=== PATIENT | male | born 1965 | race American Indian/Alaskan Native ===

== ENCOUNTER 2016-07-18 07:50 | Inpatient (IN) | payer MEDICAID, OTHER ==
[2016-07-18 08:51] LABS: BASO % 0.8 % (0.0-2.0); EOS % 0.6 % (0.0-4.0); HEMATOCRIT 39.5 % (35.0-51.0); LYMPH # 1.3 K/uL (1.0-4.3); LYMPH % 20.9 % (20.0-40.0); MEAN CELL VOLUME 88.5 fL (80.0-94.0); MEAN CORPUSCULAR HEMOGLOBIN 29.1 pg (27.0-31.0); MEAN CORPUSCULAR HGB CONC 32.9 g/dL (33.0-37.0); MEAN PLATELET VOLUME 8.2 fL (7.2-11.7); MONO # 0.6 K/uL (0.0-0.8); MONO % 9.4 % (0.0-10.0); NRBC % 0.1 % (0.0-2.0); WHITE BLOOD COUNT 6.1 K/uL (4.8-10.8)
[2016-07-18 08:59] LABS: CHLORIDE 100 mmol/L (98-107)
[2016-07-18 09:00] LABS: POTASSIUM 3.6 mmol/L (3.6-5.2); SODIUM 140 mmol/L (132-148)
[2016-07-18 09:03] LABS: GFR AFRICAN-AMERICAN > 60
[2016-07-18 09:04] LABS: ALB/GLOB RATIO 1.3 (1.0-2.1); ALCOHOL SERUM < 10 mg/dl (0-10); ALKALINE PHOSPHATASE 58 U/L (38-126); ALT/SGPT 26 U/L (21-72); AST/SGOT 35 U/L (17-59); BILIRUBIN,TOTAL 0.3 mg/dL (0.2-1.3); BLOOD UREA NITROGEN 20 mg/dL (9-20); CALCIUM 8.6 mg/dl (8.6-10.4); CARBON DIOXIDE 26 mmol/L (22-30); GLUCOSE,RANDOM 74 mg/dL (75-110); TOTAL PROTEIN 6.9 g/dL (6.3-8.3)
[2016-07-18 09:05] LABS: RBC URINE 5 /hpf (0-3); URINE BILIRUBIN NEGATIVE (NEGATIVE); URINE COLOR Yellow (YELLOW); URINE GLUCOSE (UA) NORMAL (Normal); URINE KETONE NEGATIVE (NEGATIVE); URINE LEUKOCYTE ESTERASE NEG Leu/uL (Negative); URINE PROTEIN NEGATIVE (NEGATIVE); URINE UROBILINOGEN NORMAL mg/dL (0.2-1.0); WBC URINE 2 /hpf (0-5)
[2016-07-18 09:06] LABS: URINE BLOOD TRACE (NEGATIVE)
[2016-07-18] MEDS ORDERED: Naproxen 550 mg Tab PO STA (10:07)
--- NOTE | 2016-07-18 10:46 | C.PDOC ---
History Of Present Illness 51-year-old male presents to the emergency department with complaints of increasing depression and auditory hallucinations for the past several days. He states the voices tell him to harm himself. Patient notes that two days ago, the voices told him to "jump off the roof " and he did, sustaining an injury to his lower back. He c/o low back pain currently. Patient denies head/neck injury, LOC, abdominal pain, chest pain, SOB, extremity weakness, sensory changes. Time Seen by Provider: 07/18/16 08:05 Chief Complaint (Nursing): Psychiatric Evaluation History Per: Patient History/Exam Limitations: no limitations Onset/Duration Of Symptoms: Days Current Symptoms Are (Timing): Still Present Modifying Factor(s): Alcohol Severity: Moderate Past Medical History Reviewed: Historical Data, Nursing Documentation, Vital Signs Vital Signs: Last Vital Signs Temp 98.1 F 07/28/16 08:12 Pulse 75 07/28/16 09:00 Resp 18 07/28/16 08:12 BP 123/82 07/28/16 08:12 Pulse Ox 99 07/18/16 12:05 - Medical History PMH: Depression - [facility] Procedures GROUP PSYCHOTHERAPY (07/18/16) INDIVID PSYCHOTHERAP NEC (10/12/14) INDIVIDUAL PSYCHOTHERAPY, SUPPORTIVE (07/18/16) OTHER GROUP THERAPY (10/12/14) Family History: States: No Known Family Hx - Social History Hx Alcohol Use: Yes (2 shots q2 days,vodka) Hx Substance Use: Yes (marijuana also pos for cocaine) Review Of Systems Except As Marked, All Systems Reviewed And Found Negative. Constitutional: Negative for: Fever Cardiovascular: Negative for: Chest Pain Respiratory: Negative for: Cough, Shortness of Breath Gastrointestinal: Negative for: Nausea, Vomiting, Abdominal Pain Musculoskeletal: Positive for: Back Pain Skin: Negative for: Rash Neurological: Negative for: Weakness, Numbness Psych: Positive for: Depression, Suicidal ideation Physical Exam - Physical Exam Appears: Well, Non-toxic, No Acute Distress Skin: Warm, Dry, No Rash Head: Atraumatic, Normacephalic Eye(s): bilateral: Normal Inspection, PERRL, EOMI Oral Mucosa: Moist Neck: Normal, Normal ROM, No Midline Cervical Tenderness, No Paracervical Tenderness, No Step Off Deformity, Supple Cardiovascular: Rhythm Regular Respiratory: Normal Breath Sounds, No Rales, No Rhonchi Gastrointestinal/Abdominal: Normal Exam, Bowel Sounds, Soft, No Tenderness Back: Normal Inspection, No CVA Tenderness, No Vertebral Tenderness, No Paraspinal Tenderness Extremity: Normal ROM, No Deformity Extremity: Bilateral: Atraumatic, Normal Color And Temperature, Normal ROM Neurological/Psych: Oriented x3 ED Course And Treatment - Laboratory Results Result Diagrams: 07/18/16 08:44 07/18/16 08:44 O2 Sat by Pulse Oximetry: 100 (RA) Pulse Ox Interpretation: Normal - Other Rad LS SPINE XRAY X-Ray: Interpreted by Me, Viewed By Me (NO LISTHESIS, NO FRACTURE, OSTEOPHYTE L4 ) Progress Note: Plan: Blood work, UA, UDS, Xray LS spine ordered and reviewed. Patient given PO Naprosyn for pain. Prior Visits: Notes and records from previous visits were reviewed. Patient seen in [facility] yesterday. Chart was reviewed; There was no mention of back pain or suicide attempt/jumping off the roof. 10:45am:Patient medically cleared. Pending crisis. 11:33am- Patient accepted by Dr. Tripathi for psyciatric admission - depression, alcohol dependence Disposition - Disposition Disposition: HOSPITALIZED Disposition Time: 11:33 Condition: STABLE - Clinical Impression Clinical Impression: Depression, Alcohol dependence - Scribe Statement The provider has reviewed the documentation as recorded by the Tovaibharvinder Nelson All medical record entries made by the Scribe were at my direction and personally dictated by me. I have reviewed the chart and agree that the record accurately reflects my personal performance of the history, physical exam, medical decision making, and the department course for this patient. I have also personally directed, reviewed, and agree with the discharge instructions and disposition. Decision To Admit - Pt Status Changed To: Hospital Disposition Of: Inpatient - Admit Certification Admit to Inpatient:: After my assessment, the patient will require hospitalization for at least two midnights. This is because of the severity of symptoms shown, intensity of services needed, and/or the medical risk in this patient being treated as an outpatient. - InPatient: Physician Admission Certification: I certify that this patient requires 2 or more midnights of care for the following reason:: see notes - . Bed Request Type: Psychiatry Admitting Physician: Zac Tripathi Patient Diagnosis: Depression, Alcohol dependence
[2016-07-18] MEDS ORDERED: Naproxen 550 mg Tab PO ONE (10:48)
--- NOTE | 2016-07-18 13:06 | PCM.PSYCH ---
Initial Psychiatric Evaluation - Initial Psychiatric Evaluation Type of Admission: Voluntary Legal Status: Capacity Chief Complaint (in patient's own words): attempted suicide History of Present Illness and Precipitating Events: Pt. 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 Pt. states that on Thursday he jumped off of a two-story building with the intention of ending his life. Pt. severely injured his back and is now suffering from pain that is an 8/10 on the analog pain scale. Pt. attributes his attempted suicide to the distress at the deaths of his mother and twin sister 2 months ago. Pt. admits to hearing a voice that told him to jump. Pt. states that auditory hallucinations began when he came back from [place] in 1996. Pt. describes the auditory hallucinations as ever changing, male voices. Pt. states that the voices denigrate him, instruct him to hurt others, and to hurt himself. Pt. had two previous suicide attempts in the last two years. 1) In 2014 Pt. took thirty pills, but does not remember what they were. Pt. states that at the time he had lost his job, he was suffering from financial trouble, and he was in the midst of a contentious divorce. Pt. was hospitalized at [facility] for a week. Pt. does not remember inpatient pharmaceutical treatment. Pt. was noncompliant w/ meds and outpatient tx. Pt. does not like taking medication. 2) Pt. states that he attempted suicide using a firearm, but the gun jammed. Pt. states that he was admitted to [facility] for 2 weeks, does not remember inpatient pharmaceutical treatment. On discharge Pt. was noncompliant w / medications and outpatient follow-up. Pt. again states that he does not like taking medication. Pt. admits that since the deaths of his mother and twin sister his drinking has increased from a pint of vodka once a week when he goes to clubs to 10-15 shots a day. Pt. also admits to using marijuana and cocaine - Pt. smoked 1.5 grams of cocaine a day. Pt. admits to insomnia, nightmares, panic attacks, anxiety, headaches, anhedonia , feelings of worthlessness, poor appetite, and intermittent manic episodes followed by depressive mood. Pt. admits that he sometimes feels as if someone is following him. Past Psychiatric History - Past Psychiatric History Previous Treatment History: Inpatient Pertinent Medical Hx (Current Medical&Sleep Prob, Allergies): Allergies Allergy/AdvReac Type Severity Reaction Status Date / Time No Known Allergies Allergy Verified 07/17/16 23:05 No Known Home Med 07/18/16 Review of Systems - Review of Systems All systems: reviewed and no additional remarkable complaints except - Psychiatric Psychiatric: Abnormal Sleep Pattern, Anhedonia, Anxiety, Auditory Hallucinations , Change in Appetite, Depression, Hallucinations, Hopelessness, Irritability, Panic Attacks, Paranoia, Suicidal Ideation Mental Status Examination - Personal Presentation Personal Presentation: Looks stated age - Affect Affect: Constricted, Depressed - Motor Activity Motor Activity: Calm - Reliability in Providing Information Reliability in Providing Information: Good - Speech Speech: Organized - Mood Mood: Depressed - Formal Thought Process Formal Thought Process: No Impairment - Cognitive Functions Orientation: Person, Place, Situation, Time Sensorium: Alert Attention/Concentration: Attentive Abstract Thinking: [place] Estimate of Intelligence: Below average Judgement: Imparied, as evidence by: Poor judgement, Imparied, as evidence by: Lack of insight into illness - Risk Risk: Diminished functioning - Strength & Assets Inventory Strength & Assets Inventory: Cooperative DSM 5 DX - DSM 5 DSM 5 Diagnosis: Bipolar disorder disorder depressed severe with psychotic features PTSD Chronic Alcohol use disorder severe Alcohol withdrawal Cocaine use disorder Severe - Recommended/Plan of Treatment Treatment Recommendations and Plan of Treatment: Bipolar disorder disorder depressed severe with psychotic features CBT Psychoeducation Supportive therapy, individual therapy Paxil 10 mg PO daily Trazodone 50 mg PO Q HS Gabapentin 100 mg by mouth 3 times a day Depakote 250 mg pO BID Risperdal 1 mg PO BID PTSD Chronic CBT & Psychoeducation Supportive therapy, individual therapy Alcohol use disorder severe CBT & Psychoeducation Supportive therapy, individual therapy Use [place] for abstinence Alcohol withdrawal CBT & Psychoeducation Librium 25 mg po Q6hr prn Cocaine use disorder Severe CBT & Psychoeducation Use PR for abstinence Back Pain Tramadol Monitor s/s - Smoking Cessation Smoking Cessation Initiated: No
--- NOTE | 2016-07-18 13:50 | RAD ---
PROCEDURE: Radiographs of the Lumbar Spine. HISTORY: low back pain COMPARISON: No prior. FINDINGS: BONES: There is normal alignment of the lumbar vertebral bodies. Lumbar lordosis is maintained. Vertebral bodies are normal in height. Bone mineralization is normal. There is no acute fracture, spondylolysis or spondylolisthesis. DISC SPACES: There is a large anterosuperior osteophyte at L4. There is mild degenerative disc disease at L4-5 and L5-S1, worse at L5-S1. The remaining disc heights are maintained. OTHER FINDINGS: None. IMPRESSION: No acute fracture, spondylolysis or spondylolisthesis. Mild degenerative disc disease at L4-5 and L5-S1, worse at L5-S1.
[2016-07-18] MEDS: Divalproex 250 mg DR Tab PO SCH (17:24)
[2016-07-19] MEDS: Divalproex 250 mg DR Tab PO SCH ×2 (09:37→17:34)
--- NOTE | 2016-07-19 15:59 | PCM.PYCHPN ---
Psychiatric Progress Note - Psychiatric Progress Note Patient seen today, length of contact: 15 minute Patient Chief Complaint: I still hear voices which are mostly at night. Problems Identified/Issues Discussed: Patient seen. Chart reviewed. Case discussed with staff. Issues related to illness and treatment were discussed with the patient. Patient reported feeling better but still hear voices which are mostly at night. Reported that during the day he keeps himself busy and he is not hearing any voices. Reported compliant with treatment with no adverse affects. Tolerating treatment very well. Reported very mild withdrawal symptoms. At the time of evaluation, patient was awake alert oriented 3, had no delusions, no auditory or visual hallucinations, no suicidal ideations or homicidal ideations. Medical Problems: Back pain Diagnostic Results: Reviewed DSM 5 Symptoms Update: Improving with treatment Medication Change: No Medical Record Reviewed: Yes Mental Status Examination - Cognitive Function Orientation: Person, Place, Situation, Time Memory: Intact Attention: WNL Concentration: WNL Association: WNL Fund of Knowledge: WN Decription of patient's judgement and insights: Fair - Mood Mood: Depressed (Less than before) - Affect Affect: Depressed - Speech Speech: Appropriate - Formal Thought Process Formal Thought Process: No Impairment Psychotic Thoughts and Behaviors: None - Suicidal Ideation Suicidal Ideation: No - Homicidal Ideation Homicidal Ideation: No Goal/Treatment Plan - Goal/Treatment Plan Need for Continued Stay: Remain at risks for inpatient hospitalization, Discharge may exacerbated symptoms, Severe functional impairment Progress Toward Problem(s) and Goals/Treatment Plan: Patient education Supportive therapy Continue treatment as before Estimated Date of D/C: 07/28/16 - Smoking Cessation Smoking Cessation Initiated: No
[2016-07-19] MEDS: Multiple Vitamins Tab PO SCH (17:34)
[2016-07-20] MEDS: Multiple Vitamins Tab PO SCH (09:22)
[2016-07-20] MEDS: Divalproex 250 mg DR Tab PO SCH ×2 (09:22→17:37)
--- NOTE | 2016-07-20 13:30 | PCM.PYCHPN ---
Psychiatric Progress Note - Psychiatric Progress Note Patient seen today, length of contact: 15 minute Patient Chief Complaint: I still hear voices which are mostly at night. Problems Identified/Issues Discussed: Patient seen. Chart reviewed. Case discussed with staff. Issues related to illness and treatment were discussed with the patient. Patient reported feeling better but still hear voices which are mostly at night. Reported that during the day he keeps himself busy and he is not hearing any voices. We will increase the dose of risperidone from 1 mg twice a day to 2 mg twice a day. Patient understood and agreed. Reported compliant with treatment with no adverse affects. Tolerating treatment very well. Reported very mild withdrawal symptoms. At the time of evaluation, patient was awake alert oriented 3, had no delusions, no auditory or visual hallucinations, no suicidal ideations or homicidal ideations. Medical Problems: Back pain Diagnostic Results: Reviewed DSM 5 Symptoms Update: Improving with treatment Medication Change: Yes (Dose of Risperdal increased to 2 mg twice a day) Medical Record Reviewed: Yes Mental Status Examination - Cognitive Function Orientation: Person, Place, Situation, Time Memory: Intact Attention: WNL Concentration: WNL Association: [facility] Fund of Knowledge: [facility] Decription of patient's judgement and insights: Fair - Mood Mood: Depressed (Less than before) - Affect Affect: Depressed - Speech Speech: Appropriate - Formal Thought Process Formal Thought Process: No Impairment (At the time of evaluation) Psychotic Thoughts and Behaviors: None - Suicidal Ideation Suicidal Ideation: No - Homicidal Ideation Homicidal Ideation: No Goal/Treatment Plan - Goal/Treatment Plan Need for Continued Stay: Remain at risks for inpatient hospitalization, Discharge may exacerbated symptoms, Severe functional impairment Progress Toward Problem(s) and Goals/Treatment Plan: Patient education Supportive therapy Continue treatment as before with increasing dose of risperidone to 2 mg twice a day Estimated Date of D/C: 07/28/16 - Smoking Cessation Smoking Cessation Initiated: No
[2016-07-21] MEDS ORDERED: Influenza Virus Vaccine 45 mcg/0.5 ml Syr IM ONE (10:00)
[2016-07-21] MEDS ORDERED: Pneumococcal 23-Valent Vaccine IM ONE (10:00)
[2016-07-21] MEDS: Multiple Vitamins Tab PO SCH (10:03)
[2016-07-21] MEDS: Divalproex 250 mg DR Tab PO SCH ×2 (10:03→17:38)
--- NOTE | 2016-07-21 13:26 | PCM.PYCHPN ---
Psychiatric Progress Note - Psychiatric Progress Note Patient seen today, length of contact: 15 minute Patient Chief Complaint: attempted suicide Problems Identified/Issues Discussed: Pt. admits to depressed mood and at times feelings of hopelessness and helplessness. He reports poor sleep - Pt.reports that he sleeps for about an hour a night. Pt. admits to suffering from vivid flashbacks and nightmares. Pt. admits that he is still hearing voices that tell him he couldve ended it already. Pt. expresses positive affect, and denies suicidal ideation and desire to self-harm. Supportive therapy was given Medication Change: Yes (Dose of Risperdal increased to 2 mg twice a day) Medical Record Reviewed: Yes Mental Status Examination - Cognitive Function Orientation: Person, Place, Situation, Time Memory: Intact Attention: WNL Concentration: Poor Association: WNL Fund of Knowledge: Poor - Mood Mood: Depressed (Less than before), Anxious - Affect Affect: Constricted, Depressed - Speech Speech: Appropriate, Soft - Formal Thought Process Formal Thought Process: No Impairment (At the time of evaluation) - Suicidal Ideation Suicidal Ideation: No - Homicidal Ideation Homicidal Ideation: No Goal/Treatment Plan - Goal/Treatment Plan Need for Continued Stay: Remain at risks for inpatient hospitalization, Discharge may exacerbated symptoms, Severe functional impairment Progress Toward Problem(s) and Goals/Treatment Plan: Bipolar disorder disorder depressed severe with psychotic features CBT Psychoeducation Supportive therapy, individual therapy Paxil 10 mg PO daily Trazodone 50 mg PO Q HS Gabapentin 100 mg by mouth 3 times a day Depakote 250 mg pO BID Risperdal 1 mg PO BID PTSD Chronic CBT & Psychoeducation Supportive therapy, individual therapy Alcohol use disorder severe CBT & Psychoeducation Supportive therapy, individual therapy Use [place] for abstinence Alcohol withdrawal CBT & Psychoeducation Librium 25 mg po Q6hr prn Cocaine use disorder Severe CBT & Psychoeducation Use [place] for abstinence Back Pain Tramadol Monitor s/s Estimated Date of D/C: 07/28/16 - Smoking Cessation Smoking Cessation Initiated: No
[2016-07-22] MEDS: Divalproex 250 mg DR Tab PO SCH ×2 (10:21→17:20)
[2016-07-22] MEDS: Multiple Vitamins Tab PO SCH (10:21)
--- NOTE | 2016-07-22 18:01 | PCM.PYCHPN ---
Psychiatric Progress Note - Psychiatric Progress Note Patient seen today, length of contact: 15 minute Patient Chief Complaint: attempted suicide Problems Identified/Issues Discussed: Pt. admits to depressed mood and at times feelings of hopelessness and helplessness. He reports poor sleep - Pt.reports that he sleeps for about an hour a night. Pt. admits to suffering from vivid flashbacks and nightmares. Pt. admits that he is still hearing voices that tell him he couldve ended it already. Pt. expresses positive affect, and denies suicidal ideation and desire to self-harm. Supportive therapy was given Medication Change: Yes (Dose of Risperdal increased to 2 mg twice a day) Medical Record Reviewed: Yes Mental Status Examination - Cognitive Function Orientation: Person, Place, Situation, Time Memory: Intact Attention: WNL Concentration: Poor Association: WNL Fund of Knowledge: Poor - Mood Mood: Depressed (Less than before), Anxious - Affect Affect: Constricted, Depressed - Speech Speech: Appropriate, Soft - Formal Thought Process Formal Thought Process: No Impairment (At the time of evaluation) - Suicidal Ideation Suicidal Ideation: No - Homicidal Ideation Homicidal Ideation: No Goal/Treatment Plan - Goal/Treatment Plan Need for Continued Stay: Remain at risks for inpatient hospitalization, Discharge may exacerbated symptoms, Severe functional impairment Progress Toward Problem(s) and Goals/Treatment Plan: Bipolar disorder disorder depressed severe with psychotic features CBT Psychoeducation Supportive therapy, individual therapy Paxil 10 mg PO daily Trazodone 50 mg PO Q HS Gabapentin 100 mg by mouth 3 times a day Depakote 250 mg pO BID Risperdal 2 mg PO BID PTSD Chronic CBT & Psychoeducation Supportive therapy, individual therapy Alcohol use disorder severe CBT & Psychoeducation Supportive therapy, individual therapy Use [place] for abstinence Alcohol withdrawal CBT & Psychoeducation Librium 25 mg po Q6hr prn Cocaine use disorder Severe CBT & Psychoeducation Use [place] for abstinence Back Pain Tramadol Monitor s/s Estimated Date of D/C: 07/28/16 - Smoking Cessation Smoking Cessation Initiated: No
[2016-07-23] MEDS: Divalproex 250 mg DR Tab PO SCH ×2 (10:18→17:41)
[2016-07-23] MEDS: Multiple Vitamins Tab PO SCH (10:18)
--- NOTE | 2016-07-23 10:29 | PCM.PYCHPN ---
Psychiatric Progress Note - Psychiatric Progress Note Patient seen today, length of contact: 15 minute Patient Chief Complaint: attempted suicide Problems Identified/Issues Discussed: Pt. reports an increase in hours of sleep to 2.5 hours. Pt. still reports auditory hallucinations, but denies nightmares for the first time since admission. Pt. reports suffering nosebleeds and headaches. Pt. has been observed socializing in common areas. Pt. expressed desire to maintain compliance w/ medications upon discharge, b/c he believes that they are helping him. supportive therapy was given Medication Change: Yes (start Minipress, increase Prozac) Medical Record Reviewed: Yes Mental Status Examination - Cognitive Function Orientation: Person, Place, Situation, Time Memory: Intact Attention: WNL Concentration: Poor Fund of Knowledge: WNL - Mood Mood: Depressed, Anxious - Affect Affect: Constricted, Depressed - Speech Speech: Appropriate - Formal Thought Process Formal Thought Process: Hallucinations - Suicidal Ideation Suicidal Ideation: No - Homicidal Ideation Homicidal Ideation: No Goal/Treatment Plan - Goal/Treatment Plan Need for Continued Stay: Remain at risks for inpatient hospitalization, Discharge may exacerbated symptoms, Severe functional impairment Progress Toward Problem(s) and Goals/Treatment Plan: Bipolar disorder disorder depressed severe with psychotic features CBT Psychoeducation Supportive therapy, individual therapy Paxil 20 mg PO daily Trazodone 50 mg PO Q HS Gabapentin 100 mg by mouth 3 times a day Depakote 250 mg pO BID Risperdal 1 mg PO BID PTSD Chronic CBT & Psychoeducation prazosin 1 mg by mouth daily at bedtime Supportive therapy, individual therapy Alcohol use disorder severe CBT & Psychoeducation Supportive therapy, individual therapy Use [place] for abstinence Alcohol withdrawal CBT & Psychoeducation Librium 25 mg po Q6hr prn Cocaine use disorder Severe CBT & Psychoeducation Use MD for abstinence Back Pain Tramadol Monitor s/s Estimated Date of D/C: 07/28/16 - Smoking Cessation Smoking Cessation Initiated: No
[2016-07-24] MEDS: Multiple Vitamins Tab PO SCH (09:34)
[2016-07-24] MEDS: Divalproex 250 mg DR Tab PO SCH (09:37)
--- NOTE | 2016-07-24 15:32 | PCM.PYCHPN ---
Psychiatric Progress Note - Psychiatric Progress Note Patient seen today, length of contact: 15 minute Patient Chief Complaint: The voices are getting better Problems Identified/Issues Discussed: patient seen and evaluated, chart reviewed and discussed with the nurse. as per staff patient started coming out of his room and started socializing with peers. He appears less depressed and less psychotic. He remained calm and cooperative. Patient reports improvement in his mood and improvement in his voices. He reports that his flashbacks also getting better and as a result he was able to sleep last night. Pt. expressed desire to maintain compliance w/ medications upon discharge, b/c he believes that they are helping him. Medication Change: Yes (increase Depakote) Medical Record Reviewed: Yes Mental Status Examination - Cognitive Function Orientation: Person, Place, Situation, Time Memory: Intact Attention: WNL Concentration: Poor Association: WNL Fund of Knowledge: WNL - Mood Mood: Depressed (Less than before), Anxious - Affect Affect: Broad - Speech Speech: Appropriate, Loud - Formal Thought Process Formal Thought Process: No Impairment (At the time of evaluation) - Suicidal Ideation Suicidal Ideation: No - Homicidal Ideation Homicidal Ideation: No Goal/Treatment Plan - Goal/Treatment Plan Need for Continued Stay: Remain at risks for inpatient hospitalization, Discharge may exacerbated symptoms, Severe functional impairment Progress Toward Problem(s) and Goals/Treatment Plan: Bipolar disorder disorder depressed severe with psychotic features CBT Psychoeducation Supportive therapy, individual therapy Paxil 20 mg PO daily Trazodone 50 mg PO Q HS Gabapentin 100 mg by mouth 3 times a day Depakote 500 mg pO BID Risperdal 2 mg PO BID PTSD Chronic CBT & Psychoeducation prazosin 1 mg by mouth daily at bedtime Supportive therapy, individual therapy Alcohol use disorder severe CBT & Psychoeducation Supportive therapy, individual therapy Use [place] for abstinence Alcohol withdrawal CBT & Psychoeducation Librium 25 mg po Q6hr prn Cocaine use disorder Severe CBT & Psychoeducation Use [place] for abstinence Back Pain Tramadol Monitor s/s Estimated Date of D/C: 07/28/16 - Smoking Cessation Smoking Cessation Initiated: No
[2016-07-24] MEDS: Divalproex 500 mg DR Tab PO SCH (17:06)
--- NOTE | 2016-07-25 09:40 | PCM.PYCHPN ---
Psychiatric Progress Note - Psychiatric Progress Note Patient seen today, length of contact: 15 minute Patient Chief Complaint: I am feeling little better Problems Identified/Issues Discussed: patient seen and evaluated, chart reviewed and discussed with the nurse. Today pt appears more organized, and kempt. He reports improvement in his mood and psychosis. He reports less irritability and less agitation. Patient reports lesser flashbacks and reports improvement in his sleep. He is taking medications and denies any side effects. Medication Change: Yes (increase Depakote) Medical Record Reviewed: Yes Mental Status Examination - Cognitive Function Orientation: Person, Place, Situation, Time Memory: Intact Attention: WNL Concentration: Poor Association: WNL Fund of Knowledge: WNL - Mood Mood: Depressed, Anxious - Affect Affect: Broad - Speech Speech: Appropriate, Loud - Formal Thought Process Formal Thought Process: No Impairment (At the time of evaluation) - Suicidal Ideation Suicidal Ideation: No - Homicidal Ideation Homicidal Ideation: No Goal/Treatment Plan - Goal/Treatment Plan Need for Continued Stay: Remain at risks for inpatient hospitalization, Discharge may exacerbated symptoms, Severe functional impairment Progress Toward Problem(s) and Goals/Treatment Plan: Bipolar disorder disorder depressed severe with psychotic features CBT Psychoeducation Supportive therapy, individual therapy Paxil 20 mg PO daily Trazodone 50 mg PO Q HS Gabapentin 100 mg by mouth 3 times a day Depakote 500 mg pO BID Risperdal 2 mg PO BID PTSD Chronic CBT & Psychoeducation prazosin 1 mg by mouth daily at bedtime Supportive therapy, individual therapy Alcohol use disorder severe CBT & Psychoeducation Supportive therapy, individual therapy Use [place] for abstinence Alcohol withdrawal CBT & Psychoeducation Librium 25 mg po Q6hr prn Cocaine use disorder Severe CBT & Psychoeducation Use [place] for abstinence Back Pain Tramadol Monitor s/s Estimated Date of D/C: 07/28/16 - Smoking Cessation Smoking Cessation Initiated: No
[2016-07-25] MEDS: Multiple Vitamins Tab PO SCH (11:08)
[2016-07-25] MEDS: Divalproex 500 mg DR Tab PO SCH ×2 (11:08→18:28)
[2016-07-26] MEDS: Multiple Vitamins Tab PO SCH (09:36)
[2016-07-26] MEDS: Divalproex 500 mg DR Tab PO SCH ×2 (09:38→17:46)
--- NOTE | 2016-07-26 11:29 | PCM.PYCHPN ---
Psychiatric Progress Note - Psychiatric Progress Note Patient seen today, length of contact: 15 minute Patient Chief Complaint: I need more time to stabilize Problems Identified/Issues Discussed: patient seen and evaluated, chart reviewed and discussed with the nurse. As per the staff, pt is socializing, coming out of hos room, and remained calm and cooperative. He reports improvement in his mood and psychosis. He reports less irritability and less agitation. Patient reports lesser flashbacks and reports improvement in his sleep. He is taking medications and denies any side effects. Medication Change: No Medical Record Reviewed: Yes Mental Status Examination - Cognitive Function Orientation: Person, Place, Situation, Time Memory: Intact Attention: WNL Concentration: Poor Association: WNL Fund of Knowledge: WNL - Mood Mood: Depressed (Less than before), Anxious - Affect Affect: Broad - Speech Speech: Appropriate, Loud - Formal Thought Process Formal Thought Process: No Impairment (At the time of evaluation) - Suicidal Ideation Suicidal Ideation: No - Homicidal Ideation Homicidal Ideation: No Goal/Treatment Plan - Goal/Treatment Plan Need for Continued Stay: Discharge may exacerbated symptoms, Severe functional impairment Progress Toward Problem(s) and Goals/Treatment Plan: Bipolar disorder disorder depressed severe with psychotic features CBT Psychoeducation Supportive therapy, individual therapy Paxil 20 mg PO daily Trazodone 50 mg PO Q HS Gabapentin 100 mg by mouth 3 times a day Depakote 500 mg pO BID Risperdal 2 mg PO BID PTSD Chronic CBT & Psychoeducation prazosin 1 mg by mouth daily at bedtime Supportive therapy, individual therapy Alcohol use disorder severe CBT & Psychoeducation Supportive therapy, individual therapy Use [place] for abstinence Alcohol withdrawal CBT & Psychoeducation Librium 25 mg po Q6hr prn Cocaine use disorder Severe CBT & Psychoeducation Use [place] for abstinence Back Pain Tramadol Monitor s/s Estimated Date of D/C: 07/28/16
[2016-07-26] MEDS ORDERED: Magnesium Hydroxide Susp 30 ml UD PO PRN (15:40)
[2016-07-27] MEDS: Multiple Vitamins Tab PO SCH (09:31)
[2016-07-27] MEDS: Divalproex 500 mg DR Tab PO SCH ×2 (09:32→17:17)
--- NOTE | 2016-07-27 16:14 | PCM.PYCHPN ---
Psychiatric Progress Note - Psychiatric Progress Note Patient seen today, length of contact: 15 minute Patient Chief Complaint: I am feeling much better Problems Identified/Issues Discussed: patient seen and evaluated, chart reviewed and discussed with the nurse. Today pt reports a lot of improvement in his mood and denies any psychosis. He is looking forward to get discharged tomorrow. Sleep and appetite is improved. He is taking medications and denies any side effects. Medication Change: No Medical Record Reviewed: Yes Mental Status Examination - Cognitive Function Orientation: Person, Place, Situation, Time Memory: Intact Attention: WNL Concentration: WNL Association: WNL Fund of Knowledge: WNL - Mood Mood: Anxious - Affect Affect: Constricted - Speech Speech: Appropriate - Formal Thought Process Formal Thought Process: No Impairment - Suicidal Ideation Suicidal Ideation: No - Homicidal Ideation Homicidal Ideation: No Goal/Treatment Plan - Goal/Treatment Plan Need for Continued Stay: Discharge may exacerbated symptoms Progress Toward Problem(s) and Goals/Treatment Plan: Bipolar disorder disorder depressed severe with psychotic features CBT Psychoeducation Supportive therapy, individual therapy Paxil 20 mg PO daily Trazodone 50 mg PO Q HS Gabapentin 100 mg by mouth 3 times a day Depakote 500 mg pO BID Risperdal 2 mg PO BID PTSD Chronic CBT & Psychoeducation prazosin 1 mg by mouth daily at bedtime Supportive therapy, individual therapy Alcohol use disorder severe CBT & Psychoeducation Supportive therapy, individual therapy Use [place] for abstinence Alcohol withdrawal CBT & Psychoeducation Librium 25 mg po Q6hr prn Cocaine use disorder Severe CBT & Psychoeducation Use [place] for abstinence Back Pain Tramadol Monitor s/s Estimated Date of D/C: 07/28/16 - Smoking Cessation Smoking Cessation Initiated: No
[2016-07-28 08:13] VITALS: BP 123/82; RESP 18; TEMP 98.1
--- NOTE | 2016-07-28 09:02 | PCM.PYCHDC ---
Mental Status Examination - Mental Status Examination Orientation: Person, Place, Situation, Time Memory: Intact Mood: Neutral Affect: Constricted Speech: Soft Attention: WNL Concentration: WNL Association: WNL Fund of Knowledge: WNL Formal Thought Process: No Impairment Description of patient's judgement and insight: good, fair Psychotic Thoughts and Behaviors: denies any AVH Suicidal Ideation: No Current Homicidal Ideation?: No Discharge Summary - Discharge Note Reason for Hospitalization: Pt. 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 Pt. states that on Thursday he jumped off of a two-story building with the intention of ending his life. Pt. severely injured his back and is now suffering from pain that is an 8/10 on the analog pain scale. Pt. attributes his attempted suicide to the distress at the deaths of his mother and twin sister 2 months ago. Pt. admits to hearing a voice that told him to jump. Pt. states that auditory hallucinations began when he came back from [place] in 1996. Pt. describes the auditory hallucinations as ever changing, male voices. Pt. states that the voices denigrate him, instruct him to hurt others, and to hurt himself. Pt. had two previous suicide attempts in the last two years. 1) In 2014 Pt. took thirty pills, but does not remember what they were. Pt. states that at the time he had lost his job, he was suffering from financial trouble, and he was in the midst of a contentious divorce. Pt. was hospitalized at [facility] for a week. Pt. does not remember inpatient pharmaceutical treatment. Pt. was noncompliant w/ meds and outpatient tx. Pt. does not like taking medication. 2) Pt. states that he attempted suicide using a firearm, but the gun jammed. Pt. states that he was admitted to [facility] for 2 weeks, does not remember inpatient pharmaceutical treatment. On discharge Pt. was noncompliant w / medications and outpatient follow-up. Pt. again states that he does not like taking medication. Pt. admits that since the deaths of his mother and twin sister his drinking has increased from a pint of vodka once a week when he goes to clubs to 10-15 shots a day. Pt. also admits to using marijuana and cocaine - Pt. smoked 1.5 grams of cocaine a day. Pt. admits to insomnia, nightmares, panic attacks, anxiety, headaches, anhedonia , feelings of worthlessness, poor appetite, and intermittent manic episodes followed by depressive mood. Pt. admits that he sometimes feels as if someone is following him. Consultations:: List each consultation separately and include: 1. Reason for request. 2. Findings. 3. Follow-up Summary of Hospital Course include:: 1. Description of specific treatment plan utilized for patients during their course of treatmen. 2. Summarize the time- course for resolution of acute symptoms and/or regressed behaviors. 3. Describe issues identified and worked on during hospitalization. 4. Describe medication utilized. 5. Describe medical problems identified and treated. 6. Reassessment of suicide risk Summary of Hospital Course: During the course of his stay, patient (pt) started progressively improving and he no longer remained irritable, depressed, and suicidal. His mood was improved and he started attending groups and meetings and started socializing. Patient denied any feelings of hopelessness, helplessness, and worthlessness, denied any problem with the sleep or appetite, denied suicidal ideation or homicidal ideation. Pt denied any auditory or visual hallucinations. Some changes were made in his current medications and patient was discharged on following medications. He tolerated these medications very well and denied any side effects. - Final Diagnosis (DSM 5) Condition upon Discharge: GOOD DSM 5: Bipolar disorder disorder depressed severe with psychotic features PTSD Chronic Alcohol use disorder severe Alcohol withdrawal Cocaine use disorder Severe Disposition: HOME/ ROUTINE Follow-up Treatment Plan: Education: Pt was educated and counseled about the risks and benefits of taking and not taking medications. Pt was educated and counseled about the risks of drinking and abusing drugs. Pt was educated and counseled to go to the ER or call 911 if pt develop suicidal ideation or homicidal ideation, worsening of symptoms or severe side effects of the meds. Prescriptions/Medication Reconciliation: Benztropine [Cogentin] 1 mg PO BID #60 tab Divalproex [Depakote DR(*BID*)] 500 mg PO BID #60 ect Prazosin HCl [Minipress] 1 mg PO HS #30 cap PARoxetine [Paxil] 20 mg PO QAM #30 tab risperiDONE [RisperDAL Tab] 2 mg PO BID #60 tab - Smoking Cessation Smoking Cessation Medication prescribed: No - Antipsychotic Medications Pt discharged on 2 or more routine antipsychotic medications: No
[2016-07-28] MEDS: Divalproex 500 mg DR Tab PO SCH (09:37)
[2016-07-28] MEDS: Multiple Vitamins Tab PO SCH (09:37)
[2016-07-28 12:00] VITALS: PULSE 75
[2016-07-30 18:52] VITALS: O2SAT 100
== END 2016-07-28 10:10 | disposition home or self-care (01) | DRG 751 ==
LOC: C.ER 07:50 → C.9E 11:33 → C.5E 11:59
PROVIDERS: ADMIT Psychiatry & Neurology Psychiatry; ATTEND Psychiatry & Neurology Psychiatry
PROC: GZ56ZZZ Individual Psychotherapy, Supportive (ICD-10-PCS; principal; 2016-07-18)
PROC: GZHZZZZ Group Psychotherapy (ICD-10-PCS; 2016-07-18)
DX: F10.239 Alcohol dependence with withdrawal, unspecified (principal); F14.90 Cocaine use, unspecified, uncomplicated; R45.851 Suicidal ideations; F12.90 Cannabis use, unspecified, uncomplicated; F43.12 Post-traumatic stress disorder, chronic; G47.00 Insomnia, unspecified; F31.9 Bipolar disorder, unspecified

== ENCOUNTER 2016-07-31 22:54 | Emergency (ER) | payer MEDICAID ==
[2016-07-31 23:18] VITALS: BP 140/94; PULSE 92; RESP 20; TEMP 98; O2SAT 98
--- NOTE | 2016-07-31 23:56 | C.PDOC ---
History Of Present Illness Patient presents to ED with depression and suicidal ideation but has no plan in hand. Patient Has been drinking tonight and has not taken his psych medication. Patient speaks clearly and is cooperative. Time Seen by Provider: 07/31/16 23:56 Chief Complaint (Nursing): Psychiatric Evaluation History Per: Patient History/Exam Limitations: no limitations Onset/Duration Of Symptoms: Hrs Current Symptoms Are (Timing): Still Present Suicide/Self Injury Attempted (Context): None Modifying Factor(s): Alcohol Severity: Mild Associated Symptoms: Depression, Suicidal Thoughts. denies: Anger, Anxiety Involuntary Hold By: None Recent travel outside of the [place]: No Additional History Per: Patient Past Medical History Reviewed: Historical Data, Nursing Documentation, Vital Signs Vital Signs: Last Vital Signs Temp 98 F 07/31/16 23:14 Pulse 92 H 07/31/16 23:14 Resp 20 07/31/16 23:14 BP 140/94 H 07/31/16 23:14 Pulse Ox 98 08/01/16 00:48 - Medical History PMH: Depression - [facility] Procedures GROUP PSYCHOTHERAPY (07/18/16) INDIVID PSYCHOTHERAP NEC (10/12/14) INDIVIDUAL PSYCHOTHERAPY, SUPPORTIVE (07/18/16) OTHER GROUP THERAPY (10/12/14) Family History: States: No Known Family Hx - Social History Hx Alcohol Use: Yes (2 shots q2 days,vodka) Hx Substance Use: Yes (marijuana also pos for cocaine) Review Of Systems Constitutional: Negative for: Fever, Chills Skin: Negative for: Rash, Lesions Neurological: Negative for: Change in Speech Psych: Positive for: Depression, Suicidal ideation (No plan in hand) Physical Exam - Physical Exam Appears: Non-toxic Skin: Warm Eye(s): bilateral: Normal Inspection Neck: Supple Neurological/Psych: Oriented x3, Normal Speech, Normal Cognition Gait: Steady ED Course And Treatment - Laboratory Results Result Diagrams: 08/01/16 00:14 08/01/16 00:14 O2 Sat by Pulse Oximetry: 98 (Room air) Pulse Ox Interpretation: Normal Progress Note: pt was cleared for discharge by dr junior Medical Decision Making Medical Decision Making: Upon provider reevaluation patient is feeling better, is medically stable, and requires no further treatment in the ED at this time. Patient will be discharged home . Counseling was provided and all questions were answered regarding diagnosis and need for follow up with the referred clinic. There is agreement to discharge plan. Return if symptoms persist or worsen. Disposition Counseled Patient/Family Regarding: Studies Performed, Diagnosis, Need For Followup - Disposition [facility]errals: [facility] [Outside] Disposition: HOME/ ROUTINE Disposition Time: 23:56 Condition: FAIR Instructions: Cocaine Abuse (ED), Abuse of Alcohol (ED) - Clinical Impression Clinical Impression: Drug abuse, Alcohol abuse - PA / COMMODITIES MANAGER / Resident Statement MD/DO has reviewed & agrees with the documentation as recorded. - Scribe Statement The provider has reviewed the documentation as recorded by the Tovaibharvinder Rose All medical record entries made by the Poppy were at my direction and personally dictated by me. I have reviewed the chart and agree that the record accurately reflects my personal performance of the history, physical exam, medical decision making, and the department course for this patient. I have also personally directed, reviewed, and agree with the discharge instructions and disposition.
[2016-08-01 00:21] LABS: BASO # 0.1 K/uL (0.0-0.2); BASO % 0.8 % (0.0-2.0); EOS # 0.1 K/uL (0.0-0.7); EOS % 0.7 % (0.0-4.0); HEMATOCRIT 39.2 % (35.0-51.0); LYMPH # 2.1 K/uL (1.0-4.3); LYMPH % 27.4 % (20.0-40.0); MEAN CELL VOLUME 87.7 fL (80.0-94.0); MEAN CORPUSCULAR HEMOGLOBIN 29.8 pg (27.0-31.0); MEAN PLATELET VOLUME 8.7 fL (7.2-11.7); MONO # 0.7 K/uL (0.0-0.8); MONO % 9.7 % (0.0-10.0); NRBC % 0.2 % (0.0-2.0); RED CELL DISTRIBUTION WIDTH 15.2 % (11.5-14.5); WHITE BLOOD COUNT 7.5 K/uL (4.8-10.8)
[2016-08-01 00:30] LABS: CHLORIDE 104 mmol/L (98-107)
[2016-08-01 00:31] LABS: POTASSIUM 4.2 mmol/L (3.6-5.2); SODIUM 140 mmol/L (132-148)
[2016-08-01 00:33] LABS: ALB/GLOB RATIO 1.4 (1.0-2.1); BILIRUBIN,TOTAL 0.5 mg/dL (0.2-1.3); CARBON DIOXIDE 22 mmol/L (22-30); GFR AFRICAN-AMERICAN > 60; TOTAL PROTEIN 7.7 g/dL (6.3-8.3)
[2016-08-01 00:34] LABS: ALCOHOL SERUM 111 mg/dl (0-10); ALKALINE PHOSPHATASE 58 U/L (38-126); ALT/SGPT 153 U/L (21-72); AST/SGOT 73 U/L (17-59); BLOOD UREA NITROGEN 16 mg/dL (9-20); CALCIUM 8.7 mg/dl (8.6-10.4); GLUCOSE,RANDOM 97 mg/dL (75-110)
[2016-08-01 00:34] LABS: RBC URINE < 1 /hpf (0-3); URINE BACTERIA RARE (<OCC); URINE BILIRUBIN NEGATIVE (NEGATIVE); URINE BLOOD NEGATIVE (NEGATIVE); URINE COLOR Yellow (YELLOW); URINE GLUCOSE (UA) NORMAL (Normal); URINE KETONE NEGATIVE (NEGATIVE); URINE LEUKOCYTE ESTERASE NEG Leu/uL (Negative); URINE PROTEIN NEGATIVE (NEGATIVE); URINE UROBILINOGEN NORMAL mg/dL (0.2-1.0); WBC URINE 1 /hpf (0-5)
== END 2016-08-01 01:46 | disposition home or self-care (01) ==
LOC: C.ER 22:54
DX: F14.10 Cocaine abuse, uncomplicated (principal); F10.10 Alcohol abuse, uncomplicated; Y90.5 Blood alcohol level of 100-119 mg/100 ml

== ENCOUNTER 2016-09-19 09:55 | Inpatient (IN) | payer MEDICAID ==
[2016-09-19 10:04] VITALS: BMI 28.7
--- NOTE | 2016-09-19 11:30 | C.PDOC ---
History Of Present Illness 51-year-old male, presents to the emergency department requesting detox from alcohol. Patient denies any nausea/vomiting, headaches or dizziness. No other complaints at this time. Time Seen by Provider: 09/19/16 10:04 Chief Complaint (Nursing): Psychiatric Evaluation History Per: Patient History/Exam Limitations: no limitations Past Medical History Reviewed: Historical Data, Nursing Documentation, Vital Signs Vital Signs: Last Vital Signs Temp 98.1 F 09/19/16 10:10 Pulse 63 09/19/16 10:10 Resp 18 09/19/16 10:10 BP 148/95 H 09/19/16 10:10 Pulse Ox 97 09/19/16 12:13 - Medical History PMH: Depression Denies: Diabetes, Hepatitis, HIV, HTN, Chronic Kidney Disease, Seizures, Sexually Transmitted Disease - [facility] Procedures GROUP PSYCHOTHERAPY (07/18/16) INDIVID PSYCHOTHERAP NEC (10/12/14) INDIVIDUAL PSYCHOTHERAPY, SUPPORTIVE (07/18/16) OTHER GROUP THERAPY (10/12/14) Family History: States: No Known Family Hx - Social History Hx Alcohol Use: Yes (2 shots q2 days,vodka) Hx Substance Use: Yes (marijuana and cocaine) - Immunization History Hx Tetanus Toxoid Vaccination: No Hx Influenza Vaccination: No Hx Pneumococcal Vaccination: No Review Of Systems Except As Marked, All Systems Reviewed And Found Negative. Constitutional: Negative for: Fever Cardiovascular: Negative for: Chest Pain, Palpitations Respiratory: Negative for: Cough, Shortness of Breath Gastrointestinal: Negative for: Nausea, Vomiting Neurological: Negative for: Weakness, Numbness, Headache, Dizziness Psych: Negative for: Suicidal ideation, Withdrawal Physical Exam - Physical Exam Appears: Non-toxic, No Acute Distress, Other (No signs or symptoms of acute intoxication. Calm and cooperative.) Skin: Warm, Dry Head: Atraumatic Eye(s): bilateral: Normal Inspection Neck: Normal ROM Respiratory: No Accessory Muscle Use Extremity: Normal ROM Neurological/Psych: Oriented x3 ED Course And Treatment - Laboratory Results Result Diagrams: 09/19/16 11:22 09/19/16 11:22 O2 Sat by Pulse Oximetry: 97 (ra) Pulse Ox Interpretation: Normal Progress Note: Blood work, UA, UDS ordered and reviewed. 12:15pm- Patient medically cleared. Pending crisis. 12:45pm- Patient accepted for detox admission by Dr. Vo. - Scribe Statement The provider has reviewed the documentation as recorded by the Poppy Nelson All medical record entries made by the Poppy were at my direction and personally dictated by me. I have reviewed the chart and agree that the record accurately reflects my personal performance of the history, physical exam, medical decision making, and the department course for this patient. I have also personally directed, reviewed, and agree with the discharge instructions and disposition.
[2016-09-19 11:31] LABS: BASO # 0.1 K/uL (0.0-0.2); EOS # 0.1 K/uL (0.0-0.7); EOS % 1.7 % (0.0-4.0); HEMATOCRIT 41.5 % (35.0-51.0); LYMPH # 2.2 K/uL (1.0-4.3); LYMPH % 31.4 % (20.0-40.0); MEAN CELL VOLUME 85.8 fL (80.0-94.0); MEAN CORPUSCULAR HEMOGLOBIN 28.8 pg (27.0-31.0); MEAN CORPUSCULAR HGB CONC 33.6 g/dL (33.0-37.0); MEAN PLATELET VOLUME 7.8 fL (7.2-11.7); MONO # 0.5 K/uL (0.0-0.8); MONO % 7.6 % (0.0-10.0); NRBC % 0.1 % (0.0-2.0); RED CELL DISTRIBUTION WIDTH 14.6 % (11.5-14.5); WHITE BLOOD COUNT 7.1 K/uL (4.8-10.8)
[2016-09-19 11:36] LABS: RBC URINE 1 /hpf (0-3); URINE BILIRUBIN NEGATIVE (NEGATIVE); URINE BLOOD NEGATIVE (NEGATIVE); URINE COLOR Straw (YELLOW); URINE GLUCOSE (UA) NORMAL (Normal); URINE KETONE NEGATIVE (NEGATIVE); URINE LEUKOCYTE ESTERASE NEG Leu/uL (Negative); URINE PROTEIN NEGATIVE (NEGATIVE); URINE UROBILINOGEN NORMAL mg/dL (0.2-1.0); WBC URINE 1 /hpf (0-5)
[2016-09-19 11:50] LABS: CHLORIDE 100 mmol/L (98-107); POTASSIUM 4.1 mmol/L (3.6-5.2); SODIUM 140 mmol/L (132-148)
[2016-09-19 11:52] LABS: AST/SGOT 33 U/L (17-59); BILIRUBIN,TOTAL 0.7 mg/dL (0.2-1.3); CARBON DIOXIDE 29 mmol/L (22-30); GFR AFRICAN-AMERICAN > 60
[2016-09-19 11:53] LABS: ALB/GLOB RATIO 1.3 (1.0-2.1); ALKALINE PHOSPHATASE 68 U/L (38-126); ALT/SGPT 31 U/L (21-72); BLOOD UREA NITROGEN 11 mg/dL (9-20); GLUCOSE,RANDOM 75 mg/dL (75-110); TOTAL PROTEIN 7.7 g/dL (6.3-8.3)
[2016-09-19 11:54] LABS: ALCOHOL SERUM < 10 mg/dl (0-10)
[2016-09-19] MEDS: Multiple Vitamins Tab PO SCH (14:32)
--- NOTE | 2016-09-19 15:03 | PCM.PSYCH ---
Initial Psychiatric Evaluation - Initial Psychiatric Evaluation Type of Admission: Voluntary Legal Status: Capacity Chief Complaint (in patient's own words): "Alcohol" History of Present Illness and Precipitating Events: The pt is seen, chart reviewed and case discussed. 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 He is her for alcohol detox and drinks about 10 "airline bottles" of vodka everyday. No beer. Describes and has some withdrawal sxs Strated when he was 16 yo but this is his first detox. No rehab and no AA. He had no seizures or DTs He also uses cocaine since 32 yo, by smoking crack. No IVDU or other drug use but MJ. He smokes a lot. No psych sxs. Past psych hx: Two admissions in [place] but last one 1 year ago. Had one vague silvana attempt several years ago. No dep or ther sxs now. Family psych hx: Fa was alcoholic Medical hx: None Current Medications: Active Medications Generic Name Dose Route Start Last Admin Trade Name Christopherq PRN Reason Stop Dose Admin Chlordiazepoxide 25 mg 09/19/16 18:00 Librium PO 09/23/16 17:59 Q6 JABIER Taper Chlordiazepoxide 25 mg 09/19/16 13:48 09/19/16 14:33 Librium PO 25 mg Q4H PRN Administration Alcohol Withdrawal Clonidine HCl 0.1 mg 09/19/16 14:18 09/19/16 14:34 Catapres PO 0.1 mg Q4H PRN Administration Symptoms of alcohol withdrawl Folic Acid 1 mg 09/19/16 14:00 09/19/16 14:33 Folic Acid PO 1 mg DAILY JABIER Administration Hydroxyzine HCl 50 mg 09/19/16 14:20 Atarax PO Q6H PRN Anxiety Ibuprofen 600 mg 09/19/16 14:20 Motrin Tab PO Q6H PRN Pain, moderate (4-7) Multivitamins 1 tab 09/19/16 14:00 09/19/16 14:32 Hexavitamin PO 1 tab DAILY JABIER Administration Pneumococcal Polyvalent Vaccine 0.5 ml 09/22/16 10:30 Pneumovax 23 Vaccine IM 09/22/16 10:31 .ONCE ONE Thiamine HCl 100 mg 09/19/16 14:00 09/19/16 14:33 Vitamin B1 Tab PO 100 mg DAILY JABIER Administration Trazodone HCl 50 mg 09/19/16 22:00 Desyrel PO HS PRN Insomnia Past Psychiatric History - Past Psychiatric History Previous Treatment History: Inpatient Pertinent Medical Hx (Current Medical&Sleep Prob, Allergies): Allergies Allergy/AdvReac Type Severity Reaction Status Date / Time No Known Allergies Allergy Verified 09/19/16 10:04 No Known Home Med 09/19/16 Review of Systems - Psychiatric Psychiatric: Abnormal Sleep Pattern, Anxiety. absent: Depression, Hallucinations, Homicidal Ideation, Paranoia, Suicidal Ideation Mental Status Examination - Personal Presentation Personal Presentation: Looks stated age - Affect Affect: Constricted - Motor Activity Motor Activity: Calm - Reliability in Providing Information Reliability in Providing Information: Good - Speech Speech: Organized - Mood Mood: Anxious - Formal Thought Process Formal Thought Process: No Impairment - Cognitive Functions Orientation: Person, Place, Situation, Time Sensorium: Alert Attention/Concentration: Attentive Estimate of Intelligence: Average Judgement: Intact, as evidence by: Insight regarding need for hospitalization Memory: Recent intact, as evidence by: Ability to recall events of the day, Remote intact, as evidenced by: Abilit to recall sig. life events - Risk Risk: Withdrawal, Diminished functioning - Strength & Assets Inventory Strength & Assets Inventory: Cooperative - Limitations Limitations: Living alone DSM 5 DX - DSM 5 DSM 5 Diagnosis: Alcohol withdrawal Alcohol use d/o severe Cocaine use d/o severe Cannabis use d/o - severe History of substance induced mood d/o - Recommended/Plan of Treatment Treatment Recommendations and Plan of Treatment: Librium detox As needed meds Vitamins IL and CBT Attend groups andactivities Support and psychoed Cocaine: Therapy as above Cannabis Therapy as above Refer to [facility] 33 min Projected ELOS: 4-5 days Prognosis: good w treatment Discharge Plan and Discharge Criteria: no wdw sxs refer to rehab - Smoking Cessation Smoking Cessation Initiated: Yes
[2016-09-20] MEDS: Multiple Vitamins Tab PO SCH (10:33)
--- NOTE | 2016-09-20 15:16 | PCM.PYCHPN ---
Psychiatric Progress Note - Psychiatric Progress Note Patient seen today, length of contact: 15 minutes Patient Chief Complaint: I'm feeling better with the treatment. Problems Identified/Issues Discussed: Patient seen. Chart reviewed. Case discussed with the staff. Issues related to illness and treatment were discussed with the patient. Reported compliant with treatment with no adverse affects. Tolerating treatment very well. Patient reported he is on heart healthy diet but he wants regular diet. Education provided has patient's blood pressure was on her side. Still patient wants regular diet. We will change. At the time of evaluation, patient was awake alert oriented 3, had no delusions, no auditory or visual hallucinations, no suicidal ideations or homicidal ideations. Medical Problems: None reported Diagnostic Results: Reviewed DSM 5 Symptoms Update: Improving with treatment Medication Change: No Medical Record Reviewed: Yes Mental Status Examination - Cognitive Function Orientation: Person, Place, Situation, Time Memory: Intact Attention: WNL Concentration: WNL Association: WNL Fund of Knowledge: [facility] Decription of patient's judgement and insights: Fair - Mood Mood: Depressed - Affect Affect: Depressed - Speech Speech: Appropriate - Formal Thought Process Formal Thought Process: No Impairment Psychotic Thoughts and Behaviors: None - Suicidal Ideation Suicidal Ideation: No - Homicidal Ideation Homicidal Ideation: No Goal/Treatment Plan - Goal/Treatment Plan Need for Continued Stay: Remain at risks for inpatient hospitalization, Discharge may exacerbated symptoms, Severe functional impairment Progress Toward Problem(s) and Goals/Treatment Plan: Patient education Reported therapy Continue treatment as before Estimated Date of D/C: 09/23/16 - Smoking Cessation Smoking Cessation Initiated: No
[2016-09-21] MEDS: Multiple Vitamins Tab PO SCH (09:57)
--- NOTE | 2016-09-21 14:27 | PCM.PYCHPN ---
Psychiatric Progress Note - Psychiatric Progress Note Patient seen today, length of contact: 15 minutes Patient Chief Complaint: I'm feeling better with the treatment. Problems Identified/Issues Discussed: Patient seen. Chart reviewed. Case discussed with the staff. Issues related to illness and treatment were discussed with the patient. Reported compliant with treatment with no adverse affects. Tolerating treatment very well. Feeling much better. At the time of evaluation, patient was awake alert oriented 3, had no delusions, no auditory or visual hallucinations, no suicidal ideations or homicidal ideations. Medical Problems: None reported Diagnostic Results: Reviewed DSM 5 Symptoms Update: Improving with treatment Medication Change: No Medical Record Reviewed: Yes Mental Status Examination - Cognitive Function Orientation: Person, Place, Situation, Time Memory: Intact Attention: WNL Concentration: WNL Association: WN Fund of Knowledge: [facility] Decription of patient's judgement and insights: Fair - Mood Mood: Neutral - Affect Affect: Other (Appropriate) - Speech Speech: Appropriate - Formal Thought Process Formal Thought Process: No Impairment Psychotic Thoughts and Behaviors: None - Suicidal Ideation Suicidal Ideation: No - Homicidal Ideation Homicidal Ideation: No Goal/Treatment Plan - Goal/Treatment Plan Need for Continued Stay: Remain at risks for inpatient hospitalization, Discharge may exacerbated symptoms, Severe functional impairment Progress Toward Problem(s) and Goals/Treatment Plan: Patient education Reported therapy Continue treatment as before Estimated Date of D/C: 09/23/16 - Smoking Cessation Smoking Cessation Initiated: No
[2016-09-22 06:47] VITALS: RESP 18; O2SAT 98
[2016-09-22] MEDS: Multiple Vitamins Tab PO SCH (09:36)
--- NOTE | 2016-09-22 09:58 | PCM.PYCHDC ---
Mental Status Examination - Mental Status Examination Orientation: Person, Place, Situation, Time Memory: Intact Mood: Anxious Affect: Constricted Speech: Appropriate Attention: WNL Concentration: WNL Association: WNL Fund of Knowledge: WNL Formal Thought Process: No Impairment Suicidal Ideation: No Current Homicidal Ideation?: No Discharge Summary - Discharge Note Reason for Hospitalization: Alcohol detox Consultations:: List each consultation separately and include: 1. Reason for request. 2. Findings. 3. Follow-up Consultations: None Summary of Hospital Course include:: 1. Description of specific treatment plan utilized for patients during their course of treatmen. 2. Summarize the time- course for resolution of acute symptoms and/or regressed behaviors. 3. Describe issues identified and worked on during hospitalization. 4. Describe medication utilized. 5. Describe medical problems identified and treated. 6. Reassessment of suicide risk Summary of Hospital Course: The pt is seen, chart reviewed and case discussed. 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 He is her for alcohol detox and drinks about 10 "airline bottles" of vodka everyday. No beer. Describes and has some withdrawal sxs Strated when he was 16 yo but this is his first detox. No rehab and no AA. He had no seizures or DTs He also uses cocaine since 32 yo, by smoking crack. No IVDU or other drug use but MJ. He smokes a lot. No psych sxs. Past psych hx: Two admissions in [facility] but last one 1 year ago. Had one vague silvana attempt several years ago. No dep or ther sxs now. Family psych hx: Fa was alcoholic Medical hx: None Hospital course: The pt was admitted and started on treatment with psychotherapy, support, psychoeducation and medications. ND and CBT used. The pt attended groups and activities, as well as milieu therapy. All the risks and benefits of medications are discussed and the patient understood and agreed. After care discussed with the patient. He was planning on going to [place] but at the last minute he claimed he had lied to us and that he only came here b /c he had been homeless as his GF kicked him out and that he would go to [place] with his car now. He declined any rx or referrals. It was very psychopathic and odd. Risks discussed. - Final Diagnosis (DSM 5) Condition upon Discharge: IMPROVED DSM 5: Alcohol withdrawal Alcohol use d/o severe Cocaine use d/o severe Cannabis use d/o - severe History of substance induced mood d/o Disposition: HOME/ ROUTINE Follow-up Treatment Plan: Use relapse prevention skills Return to ER or call 911 if suicidal, homicidal or symptoms relapse. Stay away from stress, alcohol and drugs. See primary doctor once a year. Attend AA and reconsider rehab or IOP options - Smoking Cessation Smoking Cessation Medication prescribed: No - Antipsychotic Medications Pt discharged on 2 or more routine antipsychotic medications: No
[2016-09-22 10:21] VITALS: BP 130/80; PULSE 61; TEMP 97.6
[2016-09-22] MEDS ORDERED: Pneumococcal 23-Valent Vaccine IM ONE (10:30)
== END 2016-09-22 10:00 | disposition home or self-care (01) | DRG 751 ==
LOC: C.ER 09:55 → C.7D 12:47
PROVIDERS: ADMIT Psychiatry & Neurology Psychiatry; ATTEND Psychiatry & Neurology Psychiatry
PROC: HZ2ZZZZ Detoxification Services for Substance Abuse Treatment (ICD-10-PCS; principal; 2016-09-19)
PROC: HZ52ZZZ Individual Psychotherapy for Substance Abuse Treatment, Cognitive-Behavioral (ICD-10-PCS; 2016-09-19)
PROC: HZ59ZZZ Individual Psychotherapy for Substance Abuse Treatment, Supportive (ICD-10-PCS; 2016-09-19)
DX: F10.239 Alcohol dependence with withdrawal, unspecified (principal); F17.200 Nicotine dependence, unspecified, uncomplicated; F14.90 Cocaine use, unspecified, uncomplicated; F12.90 Cannabis use, unspecified, uncomplicated

== ENCOUNTER 2016-12-20 07:51 | Emergency (ER) | payer MEDICAID ==
[2016-12-20 07:51] VITALS: BMI 28.7
--- NOTE | 2016-12-20 08:11 | C.PDOC ---
History Of Present Illness I went to seen this patient as soon as I signed up for him (within 15 minutes for arrival). However, I was informed by the nurse that the pt changed his mind and did not want to be seen and has already left. Time Seen by Provider: 12/20/16 08:07 Chief Complaint (Nursing): Substance Abuse Past Medical History - Medical History PMH: Depression Denies: Diabetes, Hepatitis, HIV, HTN, Chronic Kidney Disease, Seizures, Sexually Transmitted Disease - [facility] Procedures DETOXIFICATION SERVICES FOR SUBSTANCE ABUSE TREATMENT (09/19/16) GROUP PSYCHOTHERAPY (07/18/16) INDIV PSYCHOTHERAPY FOR SUBSTANCE ABUSE TREATMENT, SUPPORT (09/19/16) INDIV PSYCHOTHERAPY FOR SUBSTANCE ABUSE, COGNITIV BEHAVIORAL (09/19/16) INDIVID PSYCHOTHERAP NEC (10/12/14) INDIVIDUAL PSYCHOTHERAPY, SUPPORTIVE (07/18/16) OTHER GROUP THERAPY (10/12/14) Family History: States: Unknown Family Hx - Social History Hx Alcohol Use: Yes (2 shots q2 days,vodka) Hx Substance Use: Yes (marijuana also pos for cocaine) - Immunization History Hx Tetanus Toxoid Vaccination: No Hx Influenza Vaccination: No Hx Pneumococcal Vaccination: No Disposition - Disposition Disposition: LEFT W/O BEING SEEN - ER ONLY Disposition Time: 08:10 Condition: UNKNOWN - Clinical Impression Clinical Impression: Patient left without being seen
== END 2016-12-20 08:07 | disposition left against medical advice (07) ==
LOC: C.ER 07:51
DX: F19.10 Other psychoactive substance abuse, uncomplicated (principal); Z02.9 Encounter for administrative examinations, unspecified

== ENCOUNTER 2016-12-22 08:57 | Inpatient (IN) | payer MEDICAID ==
[2016-12-22 08:57] VITALS: BMI 28.7
--- NOTE | 2016-12-22 09:23 | C.PDOC ---
History Of Present Illness 51 yo male, hx of substance abuse, presents requesting detox. last used last night, used, cocaine, alcohol. at this time, denies all complaints. no fevers, dawkins, cp, n/v/d, sob, or other complaints Time Seen by Provider: 12/22/16 09:13 Chief Complaint (Nursing): Substance Abuse Past Medical History Reviewed: Historical Data, Nursing Documentation, Vital Signs Vital Signs: Last Vital Signs Temp 99 F 12/22/16 09:09 Pulse 81 12/22/16 09:09 Resp 18 12/22/16 09:09 BP 142/75 12/22/16 10:15 Pulse Ox 99 12/22/16 12:45 - Medical History PMH: Depression, HTN Denies: Diabetes, Hepatitis, HIV, Chronic Kidney Disease, Seizures, Sexually Transmitted Disease - [facility] Procedures DETOXIFICATION SERVICES FOR SUBSTANCE ABUSE TREATMENT (09/19/16) GROUP PSYCHOTHERAPY (07/18/16) INDIV PSYCHOTHERAPY FOR SUBSTANCE ABUSE TREATMENT, SUPPORT (09/19/16) INDIV PSYCHOTHERAPY FOR SUBSTANCE ABUSE, COGNITIV BEHAVIORAL (09/19/16) INDIVID PSYCHOTHERAP NEC (10/12/14) INDIVIDUAL PSYCHOTHERAPY, SUPPORTIVE (07/18/16) OTHER GROUP THERAPY (10/12/14) Family History: States: Unknown Family Hx - Social History Hx Alcohol Use: Yes (2 shots q2 days,vodka) Hx Substance Use: Yes (marijuana also pos for cocaine) - Immunization History Hx Tetanus Toxoid Vaccination: No Hx Influenza Vaccination: No Hx Pneumococcal Vaccination: No Review Of Systems Except As Marked, All Systems Reviewed And Found Negative. Physical Exam - Physical Exam Appears: Well, No Acute Distress Skin: Normal Color, Warm, Dry Eye(s): bilateral: Normal Inspection, PERRL, EOMI Nose: Normal Throat: Normal Neck: Normal Cardiovascular: Rhythm Regular Respiratory: Normal Breath Sounds Gastrointestinal/Abdominal: Normal Exam Back: Normal Inspection Extremity: Normal ROM ED Course And Treatment - Laboratory Results Result Diagrams: 12/22/16 09:47 12/22/16 09:47 O2 Sat by Pulse Oximetry: 99 Medical Decision Making Medical Decision Making: pending medical clearance. no medical complaints. labs pending. 1030: pt in nad, no complaints, medically clear 1245: pt accepted by crisis. dr junior Disposition - Disposition Disposition: HOSPITALIZED Disposition Time: 12:51 Condition: STABLE Forms: [facility] (Turkmen) - Clinical Impression Clinical Impression: Drug abuse, Alcohol use disorder, severe, dependence Decision To Admit - Pt Status Changed To: Hospital Disposition Of: Inpatient - Admit Certification Admit to Inpatient:: After my assessment, the patient will require hospitalization for at least two midnights. This is because of the severity of symptoms shown, intensity of services needed, and/or the medical risk in this patient being treated as an outpatient. - InPatient: Physician Admission Certification: I certify that this patient requires 2 or more midnights of care for the following reason:: pt needs detox - . Bed Request Type: Detox Admitting Physician: Linda Junior Patient Diagnosis: Drug abuse, Alcohol use disorder, severe, dependence
[2016-12-22 09:54] LABS: BASO % 0.5 % (0.0-2.0); EOS # 0.1 K/uL (0.0-0.7); EOS % 1.5 % (0.0-4.0); HEMATOCRIT 42.8 % (35.0-51.0); LYMPH # 1.4 K/uL (1.0-4.3); LYMPH % 24.9 % (20.0-40.0); MEAN CELL VOLUME 84.4 fL (80.0-94.0); MEAN CORPUSCULAR HEMOGLOBIN 28.2 pg (27.0-31.0); MEAN CORPUSCULAR HGB CONC 33.4 g/dL (33.0-37.0); MEAN PLATELET VOLUME 7.7 fL (7.2-11.7); MONO # 0.5 K/uL (0.0-0.8); MONO % 8.1 % (0.0-10.0); RED CELL DISTRIBUTION WIDTH 14.6 % (11.5-14.5); WHITE BLOOD COUNT 5.6 K/uL (4.8-10.8)
[2016-12-22 10:07] LABS: CHLORIDE 102 mmol/L (98-107)
[2016-12-22 10:08] LABS: POTASSIUM 3.6 mmol/L (3.6-5.2); SODIUM 143 mmol/L (132-148)
[2016-12-22 10:10] LABS: ALB/GLOB RATIO 1.4 (1.0-2.1); ALKALINE PHOSPHATASE 81 U/L (38-126); AST/SGOT 38 U/L (17-59); BILIRUBIN,TOTAL 1.1 mg/dL (0.2-1.3); BLOOD UREA NITROGEN 13 mg/dL (9-20); CARBON DIOXIDE 27 mmol/L (22-30); GFR AFRICAN-AMERICAN > 60; TOTAL PROTEIN 7.2 g/dL (6.3-8.3)
[2016-12-22 10:11] LABS: ALCOHOL SERUM < 10 mg/dl (0-10); ALT/SGPT 31 U/L (21-72); GLUCOSE,RANDOM 76 mg/dL (75-110)
[2016-12-22 10:13] LABS: RBC URINE 6 /hpf (0-3); URINE BILIRUBIN 1+ (NEGATIVE); URINE BLOOD NEGATIVE (NEGATIVE); URINE COLOR Amber (YELLOW); URINE GLUCOSE (UA) NORMAL (Normal); URINE KETONE 2+ mg/dL (NEGATIVE); URINE LEUKOCYTE ESTERASE NEG Leu/uL (Negative); URINE PROTEIN 2+ mg/dL (NEGATIVE); WBC URINE 3 /hpf (0-5)
--- NOTE | 2016-12-22 14:26 | PCM.BM ---
<Hannah Kent - Last Filed: 12/22/16 14:25> Treatment Plan Problems - Problems identified on initial assessmt potential alcohol withdrawal Date Initiated: 12/22/16 Time Initiated: 14:26 Assessment reference: NA Treatment assets and liabiliti Patient Assests: adapts well, cooperative, motivated, ADL independent, negotiates basic needs Patient Liabilities: substance abuse - Milieu Protocol Maintain good personal hygiene: daily Encourage regular showers, daily Remind patient to perform daily oral care, daily Assist patient to perform ADL's Maintain personal safety: every shift Educate patient to report safety concerns to staff, every shift Monitor environment for contraband/sharps Medication safety: Monitor for expected outcome, potential side effects: every shift, Assess barriers to learning: every shift, Assess readiness for medication education: every shift <Miller Vo - Last Filed: 12/23/16 18:10> - Diagnosis (1) Alcohol use disorder, severe, dependence Status: Acute Interventions: 12/23/16 18:08 * Assess 7x/week regarding severity of withdrawal * Educate regarding risks, benefits, side effects and alternatives of medications * Use Motivational Interviewing for abstinence * Use CBT for relapse prevention * Medication management for withdrawal symptoms * Encourage medication assisted treatment * (2) Cocaine use disorder, severe, dependence Status: Acute Interventions: 12/23/16 18:11 * Assess 7x/week regarding severity of withdrawal * Educate regarding risks, benefits, side effects and alternatives of medications * Use Motivational Interviewing for abstinence * Use CBT for relapse prevention * Medication management for withdrawal symptoms * Encourage medication assisted treatment * <Carla Wade - Last Filed: 12/24/16 07:27> Family Contact Family involvement: Family/SO is involved Family contact: Patient agrees to contact, Telephone contact initiated by staff - Goals for Treatment Patient goals for treatment: Complete detox and transtion to IOP program. Discharge/Continuing Care - Education Needs Education Needs: Patient Medication, Patient Diagnosis/Disease Process, Patient Coping Skills, Patient Anger Management skills, Patient Placement options, Patient Community resources - Discharge Discharge Criteria: Free of agitation, Normal sleep pattern, No longer exhibiting s/s of withdrawal, Reduction of target symptoms Discharge to:: With Family - Treatment Team Participation Patient/Family/SO Statement: 12/24/16 07:27 "I wanna go to outpatient for now. I got 2 jobs". Discussed with Family/SO: No Was Patient/Family/SO present at Treatment Team Meeting: Yes
[2016-12-23] MEDS: Multiple Vitamins Tab PO SCH (09:14)
--- NOTE | 2016-12-23 16:06 | PCM.PSYCH ---
Initial Psychiatric Evaluation - Initial Psychiatric Evaluation Type of Admission: Voluntary Legal Status: Capacity Chief Complaint (in patient's own words): "I relapsed on everything." History of Present Illness and Precipitating Events: The pt. is seen, chart reviewed, and case discussed. This is a 51 y/o -Turkish male who walked into the ER seeking help with his long history of alcohol and drug dependence. This is his second time in detox, and he reports that he "relapsed on everything" as soon as he left his first detox treatment. Pt. reports to drinking 1-1.5 pints of vodka daily for the last 30 yrs. His last use was 6 AM yesterday. He states he relapsed after his first detox treatment 3 months ago. He experiences shakes as a withdrawal symptom. He reports he started drinking at age 16. He denies past rehab or AA. Pt. also reports to using heroin 2 wks. ago. He also spends $4459-2483/week on buying cocaine and snorts it. Pt. reports to using marijuana (unspecified) and smokes < 10 cigarettes daily. Pt. claimed he had gone to [facility] but they didn;t take him b/c we didn't send his intake papers (??). In fact, as per his chart, his plan was to go to [place] and that he had no intention to go to [facility]. Medical Hx: denies Past psych Hx: two admissions in [facility] but last one was 1 year ago. Had one vague suicide attempt several years ago. No depression or other sxs. now Family psych Hx: father was alcoholic Social: single; no children; lives with girlfriend in [place]; works as waste collection driver for [employer]. Current Medications: Active Medications Generic Name Dose Route Start Last Admin Trade Name Freq PRN Reason Stop Dose Admin Chlordiazepoxide 25 mg 12/22/16 18:00 12/23/16 13:08 Librium PO 12/26/16 17:59 25 mg Q6 JABIER Administration Taper Chlordiazepoxide 25 mg 12/22/16 15:48 12/22/16 16:39 Librium PO 25 mg Q4H PRN Administration Alcohol Withdrawal Clonidine HCl 0.1 mg 12/22/16 20:07 12/22/16 20:29 Catapres PO 0.1 mg Q6 PRN Administration opiate withdrawalh Folic Acid 1 mg 12/23/16 10:00 12/23/16 09:14 Folic Acid PO 1 mg DAILY JABIER Administration Gabapentin 300 mg 12/23/16 14:00 12/23/16 13:07 Neurontin PO 300 mg TID JABIER Administration Hydroxyzine HCl 50 mg 12/23/16 10:32 Atarax PO Q6H PRN Anxiety Ibuprofen 600 mg 12/23/16 10:32 Motrin Tab PO Q6H PRN Pain, moderate (4-7) Multivitamins 1 tab 12/23/16 10:00 12/23/16 09:14 Hexavitamin PO 1 tab DAILY JABIER Administration Thiamine HCl 100 mg 12/23/16 10:00 12/23/16 09:14 Vitamin B1 Tab PO 100 mg DAILY JABIER Administration Trazodone HCl 50 mg 12/22/16 15:48 12/22/16 22:06 Desyrel PO 50 mg HS PRN Administration Insomnia Past Psychiatric History - Past Psychiatric History Pertinent Medical Hx (Current Medical&Sleep Prob, Allergies): Allergies Allergy/AdvReac Type Severity Reaction Status Date / Time shrimp Allergy SWELLING Verified 12/22/16 14:37 No Known Home Med 12/22/16 Review of Systems - Neurological Neurological: UNREMARKABLE - Psychiatric Psychiatric: As Per HPI, Anxiety, Difficulty Concentrating, Irritability. absent: Hallucinations, Homicidal Ideation, Suicidal Ideation Mental Status Examination - Personal Presentation Personal Presentation: Looks stated age - Affect Affect: Constricted - Motor Activity Motor Activity: Calm - Reliability in Providing Information Reliability in Providing Information: Good - Speech Speech: Organized - Mood Mood: Anxious - Formal Thought Process Formal Thought Process: No Impairment - Obsessions/Compulsions Obsessions: No Compulsions: No - Cognitive Functions Orientation: Person, Place, Situation, Time Sensorium: Alert Attention/Concentration: Attentive Abstract Thinking: [place] Estimate of Intelligence: Average Judgement: Intact, as evidence by: Insight regarding need for hospitalization Memory: Recent intact, as evidence by: Ability to recall events of the day, Remote intact, as evidenced by: Abilit to recall sig. life events - Risk Risk: Withdrawal, Diminished functioning - Strength & Assets Inventory Strength & Assets Inventory: Employment status, Cooperative - Limitations Limitations: Living alone, Other DSM 5 DX - DSM 5 DSM 5 Diagnosis: Alcohol use d/o-severe Alcohol withdrawal Cocaine use d/o-severe Cannabis use d/o-severe Personality d/o - unspecified - Recommended/Plan of Treatment Treatment Recommendations and Plan of Treatment: Alcohol use d/o-severe CBT for relapse prevention Psychoeducation Supportive therapy, individual therapy Use [place] for abstinence Alcohol withdrawal Librium detox Gabapentin for augmentation As needed meds and vitamins Attend groups and activities Support and psychoeducation Consider and encourage MAT Refer to after care. Pt. wants to find inpatient or outpt care after detox. Cannabis use d/o-severe CBT for relapse prevention Psychoeducation Supportive therapy, individual therapy Use [place] for abstinence Cocaine use d/o-severe CBT for relapse prevention Psychoeducation Supportive therapy, individual therapy Use OH for abstinence 33 min Projected ELOS: 4-5 days - Smoking Cessation Smoking Cessation Initiated: Yes
[2016-12-24] MEDS: Multiple Vitamins Tab PO SCH (09:44)
--- NOTE | 2016-12-24 14:16 | PCM.PYCHPN ---
Psychiatric Progress Note - Psychiatric Progress Note Patient seen today, length of contact: 15 min. Patient Chief Complaint: "I'm all right." Problems Identified/Issues Discussed: The pt. is seen, chart reviewed, case discussed with staff. Pt. reports he is having some withdrawal sxs. including sweats and nightmares. Other than that, pt. claims to be feeling overall "all right." Support given, CBT and MN used briefly. Pt. is compliant with medications and reports no side-effects. Symptoms are improving but needs more time to stabilize. After care discussed. Pt. is open to going to [facility] in [place]. Medication Change: No Medical Record Reviewed: Yes Mental Status Examination - Cognitive Function Orientation: Person, Place, Situation, Time Memory: Intact Attention: WNL Concentration: WNL Association: WNL Fund of Knowledge: WNL - Mood Mood: Anxious - Affect Affect: Broad - Speech Speech: Appropriate - Formal Thought Process Formal Thought Process: No Impairment - Suicidal Ideation Suicidal Ideation: No - Homicidal Ideation Homicidal Ideation: No Goal/Treatment Plan - Goal/Treatment Plan Need for Continued Stay: Discharge may exacerbated symptoms Progress Toward Problem(s) and Goals/Treatment Plan: Alcohol use d/o-severe CBT for relapse prevention Psychoeducation Supportive therapy, individual therapy Use MN for abstinence Alcohol withdrawal Librium detox Gabapentin for augmentation As needed meds and vitamins Attend groups and activities Support and psychoeducation Consider and encourage MAT Refer to after care. Pt. wants to go to outpt care in [place] (perhaps [facility]) after detox. Cannabis use d/o-severe CBT for relapse prevention Psychoeducation Supportive therapy, individual therapy Use [place] for abstinence Cocaine use d/o-severe CBT for relapse prevention Psychoeducation Supportive therapy, individual therapy Use MN for abstinence 15 min Estimated Date of D/C: 12/25/16 - Smoking Cessation Smoking Cessation Initiated: Yes
[2016-12-25 07:10] VITALS: BP 140/81; PULSE 80; RESP 20; TEMP 98.1; O2SAT 98
--- NOTE | 2016-12-25 12:34 | PCM.PYCHDC ---
Mental Status Examination - Mental Status Examination Orientation: Person, Place, Situation, Time Memory: Intact Mood: Other (agitated) Affect: Constricted Speech: Loud Attention: WNL Concentration: WNL Association: WNL Fund of Knowledge: WNL Formal Thought Process: No Impairment Suicidal Ideation: No Current Homicidal Ideation?: No Discharge Summary - Discharge Note Reason for Hospitalization: Alcohol use d/o-severe Alcohol withdrawal Cocaine use d/o-severe Cannabis use d/o-severe Personality d/o-unspecified Psychiatric History (includes Medical, Family, Personal Hx): two admissions in [facility]; one vague suicide attempt; father was alcoholic Consultations:: List each consultation separately and include: 1. Reason for request. 2. Findings. 3. Follow-up Summary of Hospital Course include:: 1. Description of specific treatment plan utilized for patients during their course of treatmen. 2. Summarize the time- course for resolution of acute symptoms and/or regressed behaviors. 3. Describe issues identified and worked on during hospitalization. 4. Describe medication utilized. 5. Describe medical problems identified and treated. 6. Reassessment of suicide risk Summary of Hospital Course: The pt. was admitted and started on treatment with psychotherapy, support, psychoeducation, and medications. IN and CBT used. The pt. attended few groups and activities, as well as milieu therapy. All the risks and benefits of medications are discussed and the patient understood and agreed. The pt. improved with the treatments provided. After care discussed with patient. He was undecided and evasive Last night and this morning, pt. became emotionally labile, highly threatening, and intimidating and humiliating to the nurses and other patients. He had to be discharged immediately due to his hostile behavior. Security escorted him out. He was not manic, psychotic, delirious or depressed. - Final Diagnosis (DSM 5) Condition upon Discharge: GUARDED DSM 5: Alcohol use d/o-severe Alcohol withdrawal Cocaine use d/o-severe Cannabis use d/o-severe Personality d/o-unspecified Follow-up Treatment Plan: Refused meds Follow discussed after care plan Use relapse prevention skills. Return to ER or call 911 if suicidal, homicidal, or symptoms relapse. Stay away from stress, alcohol, and drugs. See primary doctor once a year. - Smoking Cessation Smoking Cessation Medication prescribed: No - Antipsychotic Medications Pt discharged on 2 or more routine antipsychotic medications: No
== END 2016-12-25 08:30 | disposition home or self-care (01) | DRG 751 ==
LOC: C.ER 08:57 → C.9E 12:45 → C.7D 13:14
PROVIDERS: ADMIT Psychiatry & Neurology Psychiatry; ATTEND Psychiatry & Neurology Psychiatry
PROC: HZ2ZZZZ Detoxification Services for Substance Abuse Treatment (ICD-10-PCS; principal; 2016-12-22)
PROC: HZ52ZZZ Individual Psychotherapy for Substance Abuse Treatment, Cognitive-Behavioral (ICD-10-PCS; 2016-12-22)
PROC: HZ59ZZZ Individual Psychotherapy for Substance Abuse Treatment, Supportive (ICD-10-PCS; 2016-12-22)
PROC: HZ56ZZZ Individual Psychotherapy for Substance Abuse Treatment, Psychoeducation (ICD-10-PCS; 2016-12-22)
DX: F10.239 Alcohol dependence with withdrawal, unspecified (principal); F14.10 Cocaine abuse, uncomplicated; F17.210 Nicotine dependence, cigarettes, uncomplicated; F12.90 Cannabis use, unspecified, uncomplicated

== ENCOUNTER 2017-05-11 16:51 | Observation (INO) | payer MEDICAID ==
[2017-05-11 16:51] VITALS: BMI 29.9
--- NOTE | 2017-05-11 20:38 | C.PDOC ---
History Of Present Illness 52yo male presents to ED with complaints of constant chest pain and shortness of breath since yesterday. Patient reports associated nausea and vomiting with one episode of vomiting yesterday. He reports similar pain 1 year ago, went to [facility] and had an abnormal stress test. Patient states he signed out AMA as his mother had then. Patient is also complaining of blood in his stool. Time Seen by Provider: 05/11/17 19:17 Chief Complaint (Nursing): Chest Pain History Per: Patient History/Exam Limitations: no limitations Onset/Duration Of Symptoms: Days (2) Current Symptoms Are (Timing): Still Present Past Medical History Reviewed: Historical Data, Nursing Documentation, Vital Signs Vital Signs: Last Vital Signs Temp 98.5 F 05/11/17 17:26 Pulse 75 05/11/17 17:26 Resp 18 05/11/17 17:26 BP 161/110 H 05/11/17 17:26 Pulse Ox 100 05/11/17 20:39 - Medical History PMH: Depression, Hypercholesterolemia, Post Traumatic Stress Disorder Denies: Diabetes, Hepatitis, HIV, HTN, Chronic Kidney Disease, Seizures, Sexually Transmitted Disease Surgical History: No Surg Hx - [facility] Procedures DETOXIFICATION SERVICES FOR SUBSTANCE ABUSE TREATMENT (12/22/16) GROUP PSYCHOTHERAPY (07/18/16) INDIV PSYCHOTHERAPY FOR SUBSTANCE ABUSE TREATMENT, SUPPORT (12/22/16) INDIV PSYCHOTHERAPY FOR SUBSTANCE ABUSE, COGNITIV BEHAVIORAL (12/22/16) INDIV PSYCHOTHERAPY FOR SUBSTANCE ABUSE, PSYCHOEDUCATION (12/22/16) INDIVID PSYCHOTHERAP NEC (10/12/14) INDIVIDUAL PSYCHOTHERAPY, SUPPORTIVE (07/18/16) OTHER GROUP THERAPY (10/12/14) Family History: States: Unknown Family Hx - Social History Hx Alcohol Use: Yes Hx Substance Use: Yes - Immunization History Hx Tetanus Toxoid Vaccination: No Hx Influenza Vaccination: No Hx Pneumococcal Vaccination: No Review Of Systems Except As Marked, All Systems Reviewed And Found Negative. Constitutional: Negative for: Fever, Chills Cardiovascular: Positive for: Chest Pain Respiratory: Positive for: Shortness of Breath Gastrointestinal: Positive for: Nausea, Vomiting, Hematochezia Physical Exam - Physical Exam Appears: Non-toxic Skin: Normal Color, Warm, Dry Head: Atraumatic, Normacephalic Eye(s): bilateral: Normal Inspection, PERRL, EOMI Throat: Normal Neck: Normal ROM, Supple Chest: Symmetrical Cardiovascular: Rhythm Regular Respiratory: Normal Breath Sounds Gastrointestinal/Abdominal: Normal Exam, Soft, No Tenderness Neurological/Psych: Oriented x3, Normal Speech, Normal Cognition ED Course And Treatment - Laboratory Results Result Diagrams: 05/11/17 21:33 05/11/17 21:33 ECG: Interpreted By Me, Viewed By Me ECG Interpretation: No Changes From Prior Interpretation Of ECG: Normal sinus rhythm at 77bpm. DC 142. QRS 88. QT-QTC 384 434. Twave inversion. 2 3 AVF in 01/14/2017. Twave inversion in V6 also present previously in 01/14/2017 O2 Sat by Pulse Oximetry: 100 (RA) Pulse Ox Interpretation: Normal Medical Decision Making Medical Decision Making: Plan: -- Aspirin 324 mg PO -- Fentanyl 50mcg 2213 D Dimer: negative Troponin: negative All other labs are unremarkable. Scribe Attestation: Documented by Brionna Feliciano acting as a scribe for Steffany Trivedi MD. Scribe Attestation: All medical record entries made by the Scribe were at my direction and personally dictated by me. I have reviewed the chart and agree that the record accurately reflects my personal performance of the history, physical exam, medical decision making, and the department course for this patient. I have also personally directed, reviewed, and agree with the discharge instructions and disposition. Disposition - Disposition Forms: [employer] (Ukrainian) - Scribe Statement The provider has reviewed the documentation as recorded by the Scribe Dagmar Luna Provider Attestation: All medical record entries made by the Scribe were at my direction and personally dictated by me. I have reviewed the chart and agree that the record accurately reflects my personal performance of the history, physical exam, medical decision making, and the department course for this patient. I have also personally directed, reviewed, and agree with the discharge instructions and disposition.
[2017-05-11] MEDS ORDERED: Aspirin 325 mg EC Tablets PO STA (20:43)
[2017-05-11] MEDS ORDERED: Albuterol-Ipratrop 3 mg / 0.5 (3 ml) UD INH STA (20:45)
[2017-05-11] MEDS ORDERED: Albuterol-Ipratrop 3 mg / 0.5 (3 ml) UD ONE (21:04)
[2017-05-11 21:37] LABS: BASO # 0.1 K/uL (0.0-0.2); EOS # 0.2 K/uL (0.0-0.7); EOS % 2.2 % (0.0-4.0); HEMOGLOBIN 12.7 g/dL (12.0-18.0); LYMPH # 2.3 K/uL (1.0-4.3); LYMPH % 33.3 % (20.0-40.0); MEAN CELL VOLUME 85.4 fL (80.0-94.0); MEAN CORPUSCULAR HEMOGLOBIN 28.5 pg (27.0-31.0); MEAN CORPUSCULAR HGB CONC 33.4 g/dL (33.0-37.0); MEAN PLATELET VOLUME 8.4 fL (7.2-11.7); MONO # 0.5 K/uL (0.0-0.8); MONO % 7.3 % (0.0-10.0); NEUT # 3.9 K/uL (1.8-7.0); NEUT % 56.2 % (50.0-75.0); NRBC % 0.3 % (0.0-2.0); RBC 4.44 Mil/uL (4.40-5.90); WHITE BLOOD COUNT 6.9 K/uL (4.8-10.8)
[2017-05-11 21:49] LABS: ALB/GLOB RATIO 1.1 (1.0-2.1); ALBUMIN 3.4 g/dL (3.5-5.0); ALT/SGPT 35 U/L (21-72); AST/SGOT 29 U/L (17-59); BLOOD UREA NITROGEN 15 mg/dL (9-20); CALCIUM 7.9 mg/dl (8.6-10.4); GFR AFRICAN-AMERICAN > 60; GFR NON-AFRICAN AMERICAN > 60
--- NOTE | 2017-05-12 00:09 | CP.PCM.HP ---
History of Present Illness - History of Present Illness History of Present Illness: Medicine Note for Dr. Chinchilla Service CC: Chest Pain HPI: 52 AA Male with PMHx of HTN, Hypercholesterolemia, Depression, Bipolar I presented to the ED with chest pain. Patient reports the chest pain started 1 day prior to admission. He described the pain as constant, sharp, midsternal that started around 3PM while he was resting sitting down. He did not report diaphoresis, SOB, dizziness, or syncope when the chest pain started. The pain remained constant until he was see in the ED and given pain medication. He said he has had this pain before resulting in him having a nuclear stress test performed in 12/2016 - which was normal but showed the same t waves noted on the EKG for this admission. Patient reports he does not take any medications. Denied fever, chills, headache, chest pain, SOB, abdominal pain, n/v/d/c, or urinary symptoms. PMHx: HTN, Hypercholesterolemia, Depression, Bipolar I PSHx: Denied Meds: As per JUN, reviewed and confirmed All: Shrimp (anaphylaxis) SHx: Admitted to smoking 1PPD for 10 years 20 years, drinking 1 pint of hard liquor per day for 10 years, Admitted to daily marijuana use, admitted to cocaine ( 1 month ago) and crack use (2 weeks ago) FHx: Both parent PMD: Present on Admission - Present on Admission Any Indicators Present on Admission: No Past Patient History - Infectious Disease Hx of Infectious Diseases: None - Past Medical History & Family History Past Medical History?: Yes - Past Social History Smoking Status: Former Smoker - CARDIAC Hx Hypercholesterolemia: Yes Hx Hypertension: No - PULMONARY Hx Tuberculosis: No - NEUROLOGICAL Hx Seizures: No - HEENT Hx HEENT Problems: No - RENAL Hx Chronic Kidney Disease: No - ENDOCRINE/METABOLIC Hx Endocrine Disorders: No - HEMATOLOGICAL/ONCOLOGICAL Hx Human Immunodeficiency Virus (HIV): No - INTEGUMENTARY Hx Dermatological Problems: No - MUSCULOSKELETAL/RHEUMATOLOGICAL Hx Musculoskeletal Disorders: No Hx Falls: No - GASTROINTESTINAL Hx Gastrointestinal Disorders: No - GENITOURINARY/GYNECOLOGICAL Hx Sexually Transmitted Disorders: No - PSYCHIATRIC Hx Depression: Yes Hx Post Traumatic Stress Disorder: Yes Hx Substance Use: Yes - SURGICAL HISTORY Hx Surgeries: No - ANESTHESIA Hx Anesthesia: No Meds Allergies/Adverse Reactions: Allergies Allergy/AdvReac Type Severity Reaction Status Date / Time shrimp Allergy SWELLING Verified 01/03/17 02:18 Physical Exam - Constitutional Appears: No Acute Distress - Head Exam Head Exam: NORMAL INSPECTION, NORMOCEPHALIC - Eye Exam Eye Exam: EOMI, Normal appearance, PERRL Pupil Exam: NORMAL ACCOMODATION - ENT Exam ENT Exam: Mucous Membranes Moist, Normal Exam - Respiratory Exam Respiratory Exam: Clear to Auscultation Bilateral, NORMAL BREATHING PATTERN. absent: Decreased Breath Sounds, Wheezes - Cardiovascular Exam Cardiovascular Exam: REGULAR RHYTHM - GI/Abdominal Exam GI & Abdominal Exam: Distended (not TTP, baseline abdominal girth ), Normal Bowel Sounds, Soft. absent: Tenderness - Extremities Exam Extremities exam: Positive for: normal inspection, pedal pulses present. Negative for: pedal edema, tenderness - Back Exam Back exam: NORMAL INSPECTION - Neurological Exam Neurological exam: Alert, Oriented x3 - Psychiatric Exam Psychiatric exam: Normal Affect, Normal Mood - Skin Skin Exam: Dry, Intact, Normal Color, Warm Results - Vital Signs Recent Vital Signs: Last Vital Signs Temp 98.5 F 05/11/17 17:26 Pulse 75 05/11/17 17:26 Resp 18 05/11/17 17:26 BP 161/110 H 05/11/17 17:26 Pulse Ox 100 05/11/17 22:16 - Labs Result Diagrams: 05/12/17 01:49 05/12/17 01:49 Labs: Laboratory Results - last 24 hr 05/11/17 05/11/17 05/11/17 21:33 21:33 21:33 WBC 6.9 RBC 4.44 Hgb 12.7 Hct 37.9 MCV 85.4 MCH 28.5 MCHC 33.4 RDW 15.0 H Plt Count 239 MPV 8.4 Neut % (Auto) 56.2 Lymph % (Auto) 33.3 Petroleum % (Auto) 7.3 Eos % (Auto) 2.2 Baso % (Auto) 1.0 Neut # 3.9 Lymph # 2.3 Petroleum # 0.5 Eos # 0.2 Baso # 0.1 D-Dimer, Quantitative < 200 Sodium 135 Potassium 3.6 Chloride 102 Carbon Dioxide 24 Anion Gap 12 BUN 15 Creatinine 1.0 Est GFR ( Amer) > 60 Est GFR (Non-Af Amer) > 60 Random Glucose 75 Calcium 7.9 L Total Bilirubin 0.3 AST 29 ALT 35 Alkaline Phosphatase 62 Troponin I < 0.0120 Total Protein 6.4 Albumin 3.4 L Globulin 3.0 Albumin/Globulin Ratio 1.1 Assessment & Plan - Assessment and Plan (Free Text) Assessment: 52 AA Male with PMHx of HTN, Hypercholesterolemia, Depression, Bipolar I presented to the ED with chest pain. Plan: Chest Pain r/o ACS Cardiology consulted - Dr. Mendoza- help appreciated Nuclear stress test 12/2016 - negative. T wave inversions noted on II, III, AVF, V5 and V6 at that time and on today's EKG as well. EKG: Normal sinus rhythm at 77bpm. DE 142. QRS 88. QT-QTC 384 434. Twave inversion. 2 3 AVF in 01/14/2017. Twave inversion in V6 also present previously in 01/14/2017, f/u EKGs x 2 THOM: 1st and 2nd THOM negative, f/u THOM x 1 TSH, T4, HGA1C- WNL, d-dimer < 200 F/U ECHO Meds: ASA daily, Crestor 10mg PO QHS Nitro PRN Hx of Drug Use Admitted to crack and cocaine use (HOLD BB) + UDS (12/2016) for cocaine and cannabinoids Hx HTN Patient reports not taking any medications Started on Norvasc 5mg PO daily Hx Hypercholesterolemia Patient reports not taking any medications Hx Depression Hx Bipolar Disorder Patient reports not taking any medications Prophylactic Measures GI PPX: Protonix 40mg PO daily DVT PPX: SCDs, Heparin Q12 DW Dr. Hussein, Claudine Cervantes DO, PGY-1
[2017-05-12 01:55] LABS: BASO # 0.1 K/uL (0.0-0.2); BASO % 1.1 % (0.0-2.0); EOS # 0.2 K/uL (0.0-0.7); EOS % 2.3 % (0.0-4.0); HEMOGLOBIN 12.5 g/dL (12.0-18.0); LYMPH # 2.5 K/uL (1.0-4.3); LYMPH % 36.7 % (20.0-40.0); MEAN CELL VOLUME 84.7 fL (80.0-94.0); MEAN CORPUSCULAR HEMOGLOBIN 28.6 pg (27.0-31.0); MEAN CORPUSCULAR HGB CONC 33.7 g/dL (33.0-37.0); MEAN PLATELET VOLUME 7.7 fL (7.2-11.7); MONO # 0.6 K/uL (0.0-0.8); MONO % 8.4 % (0.0-10.0); NEUT # 3.5 K/uL (1.8-7.0); NEUT % 51.5 % (50.0-75.0); RBC 4.37 Mil/uL (4.40-5.90); RED CELL DISTRIBUTION WIDTH 14.8 % (11.5-14.5); WHITE BLOOD COUNT 6.8 K/uL (4.8-10.8)
[2017-05-12 02:04] VITALS: RESP 20
[2017-05-12 02:14] LABS: ALT/SGPT 36 U/L (21-72); AST/SGOT 27 U/L (17-59); BLOOD UREA NITROGEN 13 mg/dL (9-20); CALCIUM 7.8 mg/dl (8.6-10.4); GFR AFRICAN-AMERICAN > 60; GFR NON-AFRICAN AMERICAN > 60; HDL CHOLESTEROL 44 mg/dL (30-70); MAGNESIUM 1.8 mg/dL (1.6-2.3)
[2017-05-12 02:17] LABS: LDL CHOLESTEROL 101 mg/dL (0-129)
[2017-05-12] MEDS ORDERED: Pneumococcal 23-Valent Vaccine IM ONE (02:47)
[2017-05-12] MEDS ORDERED: Influenza Vaccine 60 mcg/0.5 mL SYR (4YR UP) IM ONE (02:48)
[2017-05-12 06:07] LABS: CK-MB 0.49 ng/mL (0.0-3.38)
--- NOTE | 2017-05-12 08:36 | RAD ---
Chest x-ray single frontal view History: Chest pain. Comparison: None available. Findings: Mild venous congestion. Mild cardiomegaly. Productive change at the end of the 1st right rib. Impression: Mild venous congestion. Mild cardiomegaly.
--- NOTE | 2017-05-12 09:30 | CP.PCM.PN ---
<Crystal Mora - Last Filed: 05/12/17 14:51> Subjective - Date & Time of Evaluation Date of Evaluation: 05/12/17 Time of Evaluation: 09:30 - Subjective Subjective: Medicine progress note for Dr. Hussein's service Patient was seen and examined at bedside in no acute distress. Patient reports still having chest pain parasternally that travels under his left breast. He describes the sensation at a squeezing pain that is constant. Patient denies abdominal pain, shortness of breath, nausea, vomiting, fevers, dizziness, and leg pain/swelling. Objective - Vital Signs/Intake and Output Vital Signs (last 24 hours): Temp Pulse Resp BP Pulse Ox 97.2 F L 64 20 147/95 H 95 05/12/17 08:31 05/12/17 08:31 05/12/17 08:31 05/12/17 08:31 05/12/17 08:31 Intake and Output: 05/12/17 05/12/17 06:59 18:59 Intake Total 10 Output Total 0 Balance 10 - Medications Medications: Current Medications Heparin Sodium (Porcine) (Heparin) 5,000 units SC Q12 [facility] Last Admin: 05/12/17 09:23 Dose: 5,000 units Pantoprazole Sodium (Protonix Ec Tab) 40 mg PO DAILY [facility] Last Admin: 05/12/17 09:23 Dose: 40 mg - Labs Labs: 05/12/17 01:49 05/12/17 01:49 - Head Exam Head Exam: ATRAUMATIC, NORMOCEPHALIC - Eye Exam Eye Exam: EOMI - ENT Exam ENT Exam: Mucous Membranes Moist - Respiratory Exam Respiratory Exam: Clear to Ausculation Bilateral, NORMAL BREATHING PATTERN. absent: Rales, Rhonchi, Wheezes, Respiratory Distress - Cardiovascular Exam Cardiovascular Exam: REGULAR RHYTHM, +S1, +S2 - GI/Abdominal Exam GI & Abdominal Exam: Distended, Soft, Normal Bowel Sounds. absent: Tenderness - Extremities Exam Extremities Exam: Normal Inspection - Neurological Exam Neurological Exam: Alert, Awake, Oriented x3 - Psychiatric Exam Psychiatric exam: Normal Affect, Normal Mood - Skin Skin Exam: Dry, Intact, Normal Color, Warm Assessment and Plan - Assessment and Plan (Free Text) Plan: 52 AA Male with PMHx of HTN, Hypercholesterolemia, Depression, Bipolar I presented to the ED with chest pain. Plan: 1. Chest Pain r/o ACS * Cardiology consulted - Dr. Mendoza- help appreciated * Nuclear stress test 12/2016 - negative. T wave inversions noted on II, III, AVF , V5 and V6 at that time and on today's EKG as well. * EKG: Normal sinus rhythm at 77bpm. UT 142. QRS 88. QT-QTC 384 434. * Twave inversion. 2 3 AVF in 01/14/2017. * Twave inversion in V6 also present previously in 01/14/2017, f/u EKGs x 2 * CXR: mild venous congestion; mild cardiomegaly * THOM: negativex3 * TSH, T4, HGA1C- WNL, * D-dimer < 200 * Nitrostat 0.4 SL Q5m PRN for angina * F/U ECHO * As per cardiology, patient's previous stress test from 01/04 shows evidence of anterior and inferior reversible ischemia; recommends cardiac cath, NPO after lunch Meds: * ASA daily, Crestor 10mg PO QHS * Nitro PRN Hx of Drug Use * Admitted to crack and cocaine use (HOLD BB) * + UDS (12/2016) for cocaine and cannabinoids Hx HTN * Patient reports not taking any medications * Started on Norvasc 5mg PO daily Hx Hypercholesterolemia * Patient reports not taking any medications Hx Depression, PTSD, Bipolar Disorder * Patient reports not taking any medications Prophylactic Measures * GI PPX: Protonix 40mg PO daily * DVT PPX: SCDs, Heparin Q12 * Regular diet <Jos Hussein Jr. - Last Filed: 05/14/17 19:26> Objective - Vital Signs/Intake and Output Vital Signs (last 24 hours): Temp Pulse Resp BP Pulse Ox 98.0 F 75 20 130/64 98 05/12/17 23:35 05/12/17 23:35 05/12/17 23:35 05/13/17 05:08 05/12/17 23:35 - Labs Labs: 05/12/17 01:49 05/12/17 01:49 PT 11.4 SECONDS (9.7-12.2) 05/12/17 13:14 INR 1.0 05/12/17 13:14 Attending/Attestation - Attestation I have personally seen and examined this patient.: Yes I have fully participated in the care of the patient.: Yes I have reviewed all pertinent clinical information, including history, physical exam and plan: Yes Notes (Text): 05/14/17 19:26 Agree with resident note and plan of care
[2017-05-12] MEDS ORDERED: Pantoprazole 40 mg EC Tab PO SCH (10:00)
--- NOTE | 2017-05-12 11:35 | CP.PCM.CON ---
History of Present Illness - History of Present Illness History of Present Illness: patient seen/examined. full consult to follow. recurrent angina. EKG shows inferior and lateral ST abnormalities. I reviewed stress test from December. The perfusion images appear to show evidence of anterior and inferior reversible ischemia. Given recurrent angina, recommend cardiac cath. NPO after lunch Past Patient History - Infectious Disease Hx of Infectious Diseases: None - Past Medical History & Family History Past Medical History?: Yes - Past Social History Smoking Status: Former Smoker - CARDIAC Hx Hypercholesterolemia: Yes Hx Hypertension: No - PULMONARY Hx Tuberculosis: No - NEUROLOGICAL Hx Seizures: No - HEENT Hx HEENT Problems: No - RENAL Hx Chronic Kidney Disease: No - ENDOCRINE/METABOLIC Hx Endocrine Disorders: No - HEMATOLOGICAL/ONCOLOGICAL Hx Human Immunodeficiency Virus (HIV): No - INTEGUMENTARY Hx Dermatological Problems: No - MUSCULOSKELETAL/RHEUMATOLOGICAL Hx Musculoskeletal Disorders: No Hx Falls: No - GASTROINTESTINAL Hx Gastrointestinal Disorders: No - GENITOURINARY/GYNECOLOGICAL Hx Sexually Transmitted Disorders: No - PSYCHIATRIC Hx Depression: Yes Hx Post Traumatic Stress Disorder: Yes Hx Substance Use: Yes - SURGICAL HISTORY Hx Surgeries: No - ANESTHESIA Hx Anesthesia: No Meds Allergies/Adverse Reactions: Allergies Allergy/AdvReac Type Severity Reaction Status Date / Time shrimp Allergy SWELLING Verified 01/03/17 02:18 - Medications Medications: Current Medications Amlodipine Besylate (Norvasc) 5 mg PO DAILY [facility] Aspirin (Aspirin Chewable) 81 mg PO DAILY [facility] Heparin Sodium (Porcine) (Heparin) 5,000 units SC Q12 [facility] Last Admin: 05/12/17 09:23 Dose: 5,000 units Nitroglycerin (Nitrostat Sl Tab) 0.4 mg SL Q5M PRN PRN Reason: Other Pantoprazole Sodium (Protonix Ec Tab) 40 mg PO DAILY [facility] Last Admin: 05/12/17 09:23 Dose: 40 mg Rosuvastatin Calcium (Crestor) 10 mg PO HS [facility] Results - Vital Signs Recent Vital Signs: Last Vital Signs Temp 97.2 F L 05/12/17 08:31 Pulse 64 05/12/17 08:31 Resp 20 05/12/17 08:31 BP 147/95 H 05/12/17 08:31 Pulse Ox 95 05/12/17 08:31 - Labs Result Diagrams: 05/12/17 01:49 05/12/17 01:49 Labs: Laboratory Results - last 24 hr 05/11/17 05/11/17 05/11/17 21:33 21:33 21:33 WBC 6.9 RBC 4.44 Hgb 12.7 Hct 37.9 MCV 85.4 MCH 28.5 MCHC 33.4 RDW 15.0 H Plt Count 239 MPV 8.4 Neut % (Auto) 56.2 Lymph % (Auto) 33.3 Dolores % (Auto) 7.3 Eos % (Auto) 2.2 Baso % (Auto) 1.0 Neut # 3.9 Lymph # 2.3 Dolores # 0.5 Eos # 0.2 Baso # 0.1 D-Dimer, Quantitative < 200 Sodium 135 Potassium 3.6 Chloride 102 Carbon Dioxide 24 Anion Gap 12 BUN 15 Creatinine 1.0 Est GFR ( Amer) > 60 Est GFR (Non-Af Amer) > 60 POC Glucose (mg/dL) Random Glucose 75 Hemoglobin A1c Calcium 7.9 L Phosphorus Magnesium Total Bilirubin 0.3 AST 29 ALT 35 Alkaline Phosphatase 62 Total Creatine Kinase CK-MB (Mass) Troponin I < 0.0120 Total Protein 6.4 Albumin 3.4 L Globulin 3.0 Albumin/Globulin Ratio 1.1 Triglycerides Cholesterol LDL Cholesterol Direct HDL Cholesterol Thyroxine (T4) TSH 3rd Generation 05/12/17 05/12/17 05/12/17 01:49 01:49 01:49 WBC 6.8 RBC 4.37 L Hgb 12.5 Hct 37.0 MCV 84.7 MCH 28.6 MCHC 33.7 RDW 14.8 H Plt Count 218 MPV 7.7 Neut % (Auto) 51.5 Lymph % (Auto) 36.7 Dolores % (Auto) 8.4 Eos % (Auto) 2.3 Baso % (Auto) 1.1 Neut # 3.5 Lymph # 2.5 Dolores # 0.6 Eos # 0.2 Baso # 0.1 D-Dimer, Quantitative Sodium 136 Potassium 3.6 Chloride 106 Carbon Dioxide 25 Anion Gap 8 L BUN 13 Creatinine 0.9 Est GFR ( Amer) > 60 Est GFR (Non-Af Amer) > 60 POC Glucose (mg/dL) Random Glucose 91 Hemoglobin A1c 6.2 Calcium 7.8 L Phosphorus 2.6 Magnesium 1.8 Total Bilirubin 0.4 AST 27 ALT 36 Alkaline Phosphatase 50 Total Creatine Kinase CK-MB (Mass) Troponin I Total Protein 6.0 L Albumin 3.0 L Globulin 3.0 Albumin/Globulin Ratio 1.0 Triglycerides 99 Cholesterol 158 LDL Cholesterol Direct 101 HDL Cholesterol 44 Thyroxine (T4) 9.00 TSH 3rd Generation 1.59 05/12/17 05/12/17 05:29 06:27 WBC RBC Hgb Hct MCV MCH MCHC RDW Plt Count MPV Neut % (Auto) Lymph % (Auto) Dolores % (Auto) Eos % (Auto) Baso % (Auto) Neut # Lymph # Dolores # Eos # Baso # D-Dimer, Quantitative Sodium Potassium Chloride Carbon Dioxide Anion Gap BUN Creatinine Est GFR ( Amer) Est GFR (Non-Af Amer) POC Glucose (mg/dL) 104 Random Glucose Hemoglobin A1c Calcium Phosphorus Magnesium Total Bilirubin AST ALT Alkaline Phosphatase Total Creatine Kinase 242 H CK-MB (Mass) 0.49 Troponin I < 0.0120 Total Protein Albumin Globulin Albumin/Globulin Ratio Triglycerides Cholesterol LDL Cholesterol Direct HDL Cholesterol Thyroxine (T4) TSH 3rd Generation
[2017-05-12 13:34] LABS: PROTHROMBIN TIME 11.4 SECONDS (9.7-12.2)
[2017-05-12 13:49] LABS: CK-MB 0.47 ng/mL (0.0-3.38)
--- NOTE | 2017-05-12 22:47 | CARD ---
APPROVED REPORT EXAM: Two-dimensional and M-mode echocardiogram with Doppler and color Doppler. Other Information Quality : [employer] : INDICATION Chest Pain 2D DIMENSIONS IVSd1.3 (0.7-1.1cm)LVDd4.6 (3.9-5.9cm) PWd1.4 (0.7-1.1cm)LVDs3.0 (2.5-4.0cm) FS (%) 34.7 %LVEF (%)63.9 (>50%) M-Mode DIMENSIONS Left Atrium (MM)4.06 (2.5-4.0cm)Aortic Root3.82 (2.2-3.7cm) Aortic Cusp Exc.2.49 (1.5-2.0cm) Mitral Valve MV E Yynahgbg90.9cm/sMV A Flhtbqwz37.5cm/sE/A ratio1.0 TDI E/Lateral E'0.0E/Medial E'0.0 Tricuspid Valve TR Peak [id number]/sTR Peak [id number] LEFT VENTRICLE The left ventricular function is normal. The left ventricular ejection fraction is within the normal range. There is normal LV segmental wall motion. Transmitral Doppler flow pattern is abnormal. RIGHT VENTRICLE The right ventricle is normal size. ATRIA The left atrium is borderline dilated. AORTIC VALVE The aortic valve is normal in structure. MITRAL VALVE Mitral regurgitation is trace. TRICUSPID VALVE There is trace to mild tricuspid regurgitation. <Conclusion> Normal LV systolic function. Diastolic dysfunctin. Borderline dilated LA. Trace MR. Mild TR.
[2017-05-13 02:09] VITALS: PULSE 75; TEMP 98; O2SAT 98
[2017-05-13 05:09] VITALS: BP 130/64
--- NOTE | 2017-05-13 07:21 | CP.PCM.DIS ---
Provider - Provider Date of Admission: 05/11/17 23:47 Attending physician: Jos Hussein Jr, MD Consults: Cardiology- Dr. Mendoza Time Spent in preparation of Discharge (in minutes): 45 Hospital Course - Lab Results Lab Results: Most Recent Lab Values WBC 6.8 K/uL (4.8-10.8) 05/12/17 01:49 RBC 4.37 Mil/uL (4.40-5.90) L 05/12/17 01:49 Hgb 12.5 g/dL (12.0-18.0) 05/12/17 01:49 Hct 37.0 % (35.0-51.0) 05/12/17 01:49 MCV 84.7 fL (80.0-94.0) 05/12/17 01:49 MCH 28.6 pg (27.0-31.0) 05/12/17 01:49 MCHC 33.7 g/dL (33.0-37.0) 05/12/17 01:49 RDW 14.8 % (11.5-14.5) H 05/12/17 01:49 Plt Count 218 K/uL (130-400) 05/12/17 01:49 MPV 7.7 fL (7.2-11.7) 05/12/17 01:49 Neut % (Auto) 51.5 % (50.0-75.0) 05/12/17 01:49 Lymph % (Auto) 36.7 % (20.0-40.0) 05/12/17 01:49 Clinch % (Auto) 8.4 % (0.0-10.0) 05/12/17 01:49 Eos % (Auto) 2.3 % (0.0-4.0) 05/12/17 01:49 Baso % (Auto) 1.1 % (0.0-2.0) 05/12/17 01:49 Neut # 3.5 K/uL (1.8-7.0) 05/12/17 01:49 Lymph # 2.5 K/uL (1.0-4.3) 05/12/17 01:49 Clinch # 0.6 K/uL (0.0-0.8) 05/12/17 01:49 Eos # 0.2 K/uL (0.0-0.7) 05/12/17 01:49 Baso # 0.1 K/uL (0.0-0.2) 05/12/17 01:49 PT 11.4 SECONDS (9.7-12.2) 05/12/17 13:14 INR 1.0 05/12/17 13:14 D-Dimer, Quantitative < 200 ng/mlDDU (0-243) 05/11/17 21:33 Sodium 136 mmol/L (132-148) 05/12/17 01:49 Potassium 3.6 mmol/L (3.6-5.2) 05/12/17 01:49 Chloride 106 mmol/L (98-107) 05/12/17 01:49 Carbon Dioxide 25 mmol/L (22-30) 05/12/17 01:49 Anion Gap 8 (10-20) L 05/12/17 01:49 BUN 13 mg/dL (9-20) 05/12/17 01:49 Creatinine 0.9 mg/dL (0.8-1.5) 05/12/17 01:49 Est GFR ( Amer) > 60 05/12/17 01:49 Est GFR (Non-Af Amer) > 60 05/12/17 01:49 POC Glucose (mg/dL) 99 mg/dL (65-110) 05/13/17 06:24 Random Glucose 91 mg/dL (75-110) 05/12/17 01:49 Hemoglobin A1c 6.2 % (4.2-6.5) 05/12/17 01:49 Calcium 7.8 mg/dl (8.6-10.4) L 05/12/17 01:49 Phosphorus 2.6 mg/dL (2.5-4.5) 05/12/17 01:49 Magnesium 1.8 mg/dL (1.6-2.3) 05/12/17 01:49 Total Bilirubin 0.4 mg/dL (0.2-1.3) 05/12/17 01:49 AST 27 U/L (17-59) 05/12/17 01:49 ALT 36 U/L (21-72) 05/12/17 01:49 Alkaline Phosphatase 50 U/L (38-126) 05/12/17 01:49 Total Creatine Kinase 205 U/L (55-170) H 05/12/17 13:14 CK-MB (Mass) 0.47 ng/mL (0.0-3.38) 05/12/17 13:14 Troponin I < 0.0120 ng/mL (0.00-0.120) 05/12/17 13:14 Total Protein 6.0 g/dL (6.3-8.3) L 05/12/17 01:49 Albumin 3.0 g/dL (3.5-5.0) L 05/12/17 01:49 Globulin 3.0 gm/dL (2.2-3.9) 05/12/17 01:49 Albumin/Globulin Ratio 1.0 (1.0-2.1) 05/12/17 01:49 Triglycerides 99 mg/dL (0-149) 05/12/17 01:49 Cholesterol 158 mg/dL (0-199) 05/12/17 01:49 LDL Cholesterol Direct 101 mg/dL (0-129) 05/12/17 01:49 HDL Cholesterol 44 mg/dL (30-70) 05/12/17 01:49 Thyroxine (T4) 9.00 ug/dL (5.5-11.0) 05/12/17 01:49 TSH 3rd Generation 1.59 mIU/L (0.46-4.68) 05/12/17 01:49 - Hospital Course Hospital Course: CC: Chest Pain HPI: 52 AA Male with PMHx of HTN, Hypercholesterolemia, Depression, Bipolar I presented to the ED with chest pain. Patient reports the chest pain started 1 day prior to admission. He described the pain as constant, sharp, midsternal that started around 3PM while he was resting sitting down. He did not report diaphoresis, SOB, dizziness, or syncope when the chest pain started. The pain remained constant until he was see in the ED and given pain medication. He said he has had this pain before resulting in him having a nuclear stress test performed in 12/2016 - which was normal but showed the same t waves noted on the EKG for this admission. Patient reports he does not take any medications. Denied fever, chills, headache, chest pain, SOB, abdominal pain, n/v/d/c, or urinary symptoms. PMHx: HTN, Hypercholesterolemia, Depression, Bipolar I PSHx: Denied Meds: As per JUN, reviewed and confirmed All: Shrimp (anaphylaxis) SHx: Admitted to smoking 1PPD for 10 years 20 years, drinking 1 pint of hard liquor per day for 10 years, Admitted to daily marijuana use, admitted to cocaine ( 1 month ago) and crack use (2 weeks ago) FHx: Both parent Hospital Course: Patient was admitted on 05/11/17 for chest pain. In the ED, labs were drawn, imaging and EKG were performed, and patient was given aspirin and fentanyl. EKG showed normal sinus rhthym, T wave inversion seen on several leads (also seen on previous EKG from 12/2016). Troponins were negative times 3. D-dimer was negative. Chest xray showed mild venous congestion and mild caridomegaly. Cardiology was consulted, Dr. Mendoza. Patient was started on Norvasc 5mg daily for hypertension, aspirin, crestor, and nitrostat. Echocardiogram was ordered and showed normal LV systolic function, diastolic dysfunction, borderline dilated LA, trace MR, mild TR. Patient was scheduled for a cardiac cath on the morning of 05/13/17. Patient then decided to leave against medical advice. This is a brief summary of the hospital course. Please see EMR for more details. Discharge Exam - Additional Findings Additional findings: Patient refused physical exam. Discharge Plan - Discharge Medications Prescriptions: amLODIPine [Norvasc] 5 mg PO DAILY #30 tab - Follow Up Plan Condition: GOOD Disposition: AGAINST MEDICAL ADVICE Additional Instructions: Patient signed out against medical advice. Discussed risks of leaving AMA, however, patient still signed. Patient was provided with a new prescription, Norvasc 5mg PO daily. Patient encouraged to continue taking medication and to follow up with PMD for further treatment. Advised patient if symptoms reoccur or worsen, patient should return to the ED.
--- NOTE | 2017-05-14 11:19 | CP.PCM.CON ---
History of Present Illness - History of Present Illness History of Present Illness: I was asked to see patient by Dr Hussein. Kendall is a 52 year old male with PMH HTN, hypercholesterolemia who presents with angina. The patient states he was lifting some equipment for [employer], hen he develoepd substernal chest pressure. There was associated dyspnea. He had similar symptoms and was previously admitted to [facility]. A nuclear perfusion stress test was performed which I have reviewed. Review of Systems - Constitutional Constitutional: absent: As Per HPI, Anorexia, Chills, Daytime Sleepiness, Excessive Sweating, Fatigue, Fever, Frequent Falls, Headache, Increased Appetite , Lethargy, Malaise, Night Sweats, Snoring, Sleep Apnea, Weight Gain, Weight Loss, Weakness, Other - EENT Eyes: absent: As Per HPI, Blind Spots, Blurred Vision, Change in Vision, Decreased Night Vision, Diplopia, Discharge, Dry Eye, Exophthalmos, Floaters, Irritation, Itchy Eyes, Loss of Peripheral Vision, Pain, Photophobia, Requires Corrective Lenses, Sees Flashes, Spots in Vision, Tunnel Vision, Other Visual Disturbances, Loss of Vision, Other Ears: absent: As Per HPI, Decreased Hearing, Ear Discharge, Ear Pain, Tinnitus, Abnormal Hearing, Disequilibrium, Dizziness, Other Nose/Mouth/Throat: absent: As Per HPI, Epistaxis, Nasal Congestion, Nasal Discharge, Nasal Obstruction, Nasal Trauma, Nose Pain, Post Nasal Drip, Sinus Pain, Sinus Pressure, Bleeding Gums, Change in Voice, Dental Pain, Dry Mouth, Dysphagia, Halitosis, Hoarsness, Lip Swelling, Mouth Lesions, Mouth Pain, Odynophagia, Sore Throat, Throat Swelling, Tongue Swelling, Facial Pain, Neck Pain, Neck Mass, Other - Cardiovascular Cardiovascular: Chest Pain, Dyspnea - Respiratory Respiratory: Dyspnea - Gastrointestinal Gastrointestinal: absent: As Per HPI, Abdominal Pain, Belching, Bloating, Change in Bowel Habits, Change in Stool Character, Coffee Ground Emesis, Constipation, Cramping, Diarrhea, Dyspepsia, Dysphagia, Early Satiety, Excessive Flatus, Fecal Incontinence, Heartburn, Hematemesis, Hematochezia, Loose Stools, Melena, Nausea, Odynophagia, Temesmus, Vomiting, Other - Genitourinary Genitourinary: absent: As Per HPI, Change in Urinary Stream, Difficulty Urinating, Dysuria, Flank Pain, Hematuria, Pyuria, Nocturia, Urinary Incontinence, Urinary Frequency, Urinary Hesitance, Urinary Urgency, Voiding Freq/Small Amts, Freq UTI, Hx Renal/Bladder Calculi, Hx /Renal Surgery, Bladder Distension, Other - Musculoskeletal Musculoskeletal: absent: As Per HPI, Abnormal Gait, Arthralgias, Atrophy, Back Pain, Deformity, Joint Swelling, Limited Range of Motion, Loss of Height, Muscle Cramps, Muscle Weakness, Myalgias, Neck Pain, Numbness, Radiating Pain into Limb, Stiffness, Tingling, Other - Integumentary Integumentary: absent: As Per HPI, Acne, Alopecia, Bleeding Lesions, Change in Hair, Change in Nails, Change in Pigmentation, Changing Lesions, Dry Skin, Erythema, Furuncle, Hirsutism, Lesions, New Lesions, Non-Healing Lesions, Photosensitivity, Pruritus, Rash, Skin Pain, Skin Ulcer, Sores, Striae, Swelling , Unusual Bruising, Wounds, Jaundice, Other - Neurological Neurological: absent: As Per HPI, Abnormal Gait, Abnormal Hearing, Abnormal Movements, Abnormal Speech, Behavioral Changes, Burning Sensations, Confusion, Convulsions, Disequilibrium, Dizziness, Numbness, Focal Weakness, Frequent Falls , Headaches, Lack of Coordination, Loss of Vision, Memory Loss, Paresthesias, Radicular Pain, Restless Legs, Sensory Deficit, Syncope, Tingling, Tremor, Vertigo, Weakness, Other Visual Disturbances, Other - Psychiatric Psychiatric: absent: As Per HPI, Abnormal Sleep Pattern, Anhedonia, Anxiety, Auditory Hallucinations, Behavioral Changes, Change in Appetite, Change in Libido, Confusion, Depression, Difficulty Concentrating, Hallucinations, Homicidal Ideation, Hopelessness, Irritability, Memory Loss, Mood Swings, Panic Attacks, Paranoia, Suicidal Ideation, Visual Hallucinations, Tactile Hallucinations, Other - Endocrine Endocrine: absent: As Per HPI, Change in Body Appearance, Change in Libido, Cold Intolorance, Deepening of Voice, Excessive Sweating, Fatigue, Flushing, Heat Intolorance, Increase in Ring/Shoe/Hat Size, Palpitations, Polydipsia, Polyphagia, Polyuria, Other - Hematologic/Lymphatic Hematologic: absent: As Per HPI, Easy Bleeding, Easy Bruising, Lymphadenopathy, Other Past Patient History - Infectious Disease Hx of Infectious Diseases: None - Past Medical History & Family History Past Medical History?: Yes - Past Social History Smoking Status: Former Smoker - CARDIAC Hx Hypercholesterolemia: Yes Hx Hypertension: No - PULMONARY Hx Tuberculosis: No - NEUROLOGICAL Hx Seizures: No - HEENT Hx HEENT Problems: No - RENAL Hx Chronic Kidney Disease: No - ENDOCRINE/METABOLIC Hx Endocrine Disorders: No - HEMATOLOGICAL/ONCOLOGICAL Hx Human Immunodeficiency Virus (HIV): No - INTEGUMENTARY Hx Dermatological Problems: No - MUSCULOSKELETAL/RHEUMATOLOGICAL Hx Musculoskeletal Disorders: No Hx Falls: No - GASTROINTESTINAL Hx Gastrointestinal Disorders: No - GENITOURINARY/GYNECOLOGICAL Hx Sexually Transmitted Disorders: No - PSYCHIATRIC Hx Depression: Yes Hx Post Traumatic Stress Disorder: Yes Hx Substance Use: Yes - SURGICAL HISTORY Hx Surgeries: No - ANESTHESIA Hx Anesthesia: No Meds Home Medications: Home Medication List Medication Instructions Recorded Confirmed Type Aspirin [Aspirin Chewable] 81 mg PO DAILY chew 05/13/17 Rx Rosuvastatin Calcium [Crestor] 10 mg PO HS #30 tab 05/13/17 Rx amLODIPine [Norvasc] 5 mg PO DAILY #30 tab 05/13/17 Rx Allergies/Adverse Reactions: Allergies Allergy/AdvReac Type Severity Reaction Status Date / Time shrimp Allergy SWELLING Verified 01/03/17 02:18 Physical Exam - Constitutional Appears: Non-toxic - Head Exam Head Exam: NORMAL INSPECTION - Eye Exam Eye Exam: Normal appearance - ENT Exam ENT Exam: Mucous Membranes Moist, Normal Exam, Normal Oropharynx - Neck Exam Neck exam: Positive for: Full Rom, Normal Inspection - Respiratory Exam Respiratory Exam: NORMAL BREATHING PATTERN - Cardiovascular Exam Cardiovascular Exam: REGULAR RHYTHM - GI/Abdominal Exam GI & Abdominal Exam: Normal Bowel Sounds - Rectal Exam Rectal Exam: Deferred - Extremities Exam Extremities exam: Positive for: pedal pulses present. Negative for: tenderness - Back Exam Back exam: NORMAL INSPECTION - Neurological Exam Neurological exam: Alert, Normal Gait, Oriented x3 - Psychiatric Exam Psychiatric exam: Normal Affect - Skin Skin Exam: Normal Color, Warm Results - Vital Signs Recent Vital Signs: Last Vital Signs Temp 98.0 F 05/12/17 23:35 Pulse 75 05/12/17 23:35 Resp 20 05/12/17 23:35 BP 130/64 05/13/17 05:08 Pulse Ox 98 05/12/17 23:35 - Labs Result Diagrams: 05/12/17 01:49 05/12/17 01:49 - EKG Data EKG Interpreted by: Myself EKG shows normal: Sinus rhythm Assessment & Plan (1) Chest pain Assessment and Plan: symptoms are typical of angina. I have personally reviewed the stress test from December. There appears to be an anterior and inferior reversible myocardial perfusion defect. His symptoms are likel due to CAD. I have discussed the need for cardiac cath given recurrent angina. The ptaient agrees to proceed. All risks and benefits were explained. NPO after lunch. Status: Acute
== END 2017-05-13 07:33 | disposition left against medical advice (07) ==
LOC: C.ER 16:51 → C.9E 23:47 → C.6T 05-12 01:04
PROVIDERS: ADMIT Internal Medicine; ATTEND Internal Medicine
DX: I20.9 Angina pectoris, unspecified (principal); I10 Essential (primary) hypertension; E78.00 Pure hypercholesterolemia, unspecified; F31.9 Bipolar disorder, unspecified; F43.10 Post-traumatic stress disorder, unspecified; F12.90 Cannabis use, unspecified, uncomplicated; F14.90 Cocaine use, unspecified, uncomplicated; Z87.891 Personal history of nicotine dependence
CPT/HCPCS: 36415; 71045; 80053; 80061; 82948; 83036; 83735; 84100; 84436; 84443; 84484; 85025; 85378; 85610; 93306; 96374; 99285; G0378; J1644; J3010

== ENCOUNTER 2017-06-26 11:29 | Inpatient (IN) | payer MEDICAID ==
[2017-06-26 11:29] VITALS: BMI 29.9
[2017-06-26 12:31] LABS: BASO # 0.1 K/uL (0.0-0.2); BASO % 1.1 % (0.0-2.0); EOS # 0.1 K/uL (0.0-0.7); EOS % 2.1 % (0.0-4.0); HEMOGLOBIN 14.7 g/dL (12.0-18.0); LYMPH # 1.7 K/uL (1.0-4.3); LYMPH % 24.2 % (20.0-40.0); MEAN CELL VOLUME 85.7 fL (80.0-94.0); MEAN CORPUSCULAR HEMOGLOBIN 29.4 pg (27.0-31.0); MEAN CORPUSCULAR HGB CONC 34.3 g/dL (33.0-37.0); MEAN PLATELET VOLUME 7.6 fL (7.2-11.7); MONO # 0.4 K/uL (0.0-0.8); MONO % 5.5 % (0.0-10.0); NEUT # 4.8 K/uL (1.8-7.0); NEUT % 67.1 % (50.0-75.0); RBC 5.01 Mil/uL (4.40-5.90); RED CELL DISTRIBUTION WIDTH 15.4 % (11.5-14.5); WHITE BLOOD COUNT 7.2 K/uL (4.8-10.8)
[2017-06-26 12:36] LABS: SQUAMOUS EPITHIAL 1 /hpf (0-5); URINE BILIRUBIN NEGATIVE (NEGATIVE); URINE BLOOD NEGATIVE (NEGATIVE); URINE CLARITY Clear (Clear); URINE COLOR Yellow (YELLOW); URINE GLUCOSE (UA) NORMAL (Normal); URINE LEUKOCYTE ESTERASE NEG Leu/uL (Negative); URINE PROTEIN NEGATIVE (NEGATIVE); URINE UROBILINOGEN NORMAL mg/dL (0.2-1.0)
[2017-06-26 12:48] LABS: ALB/GLOB RATIO 1.2 (1.0-2.1); ALBUMIN 4.4 g/dL (3.5-5.0); ALT/SGPT 29 U/L (21-72); AST/SGOT 39 U/L (17-59); BLOOD UREA NITROGEN 13 mg/dL (9-20); CALCIUM 9.2 mg/dl (8.6-10.4); GFR AFRICAN-AMERICAN > 60; GFR NON-AFRICAN AMERICAN > 60
[2017-06-26 12:58] LABS: BENZODIAZEPINES, UR NEGATIVE (NEGATIVE); OPIATES, UR NEGATIVE (NEGATIVE)
[2017-06-26 13:24] LABS: BARBITURATES, UR POSITIVE (NEGATIVE); PHENCYCLIDINE, UR POSITIVE (NEGATIVE)
--- NOTE | 2017-06-26 14:34 | C.PDOC ---
History Of Present Illness 52 yr old male presents to the ER with complaints of suicidal ideation for the past 4-5 days. Patient states he was going to jump off a bridge or shoot himself in the head. Patient reports this time around last year he lost his twin sister and mother and believes it may have triggered the suicidal thoughts. Also reports of hearing voices. Denies HI or any other physical complaints. Time Seen by Provider: 06/26/17 12:21 Chief Complaint (Nursing): Psychiatric Evaluation History Per: Patient History/Exam Limitations: no limitations Onset/Duration Of Symptoms: Days (4-5) Current Symptoms Are (Timing): Still Present Suicide/Self Injury Attempted (Context): Other (jumping off bridge, shooting himself in the head) Associated Symptoms: Suicidal Thoughts Recent travel outside of the [place]: No Past Medical History Reviewed: Historical Data, Nursing Documentation, Vital Signs Vital Signs: Last Vital Signs Temp 98.0 F 06/29/17 05:50 Pulse 64 06/29/17 05:50 Resp 20 06/29/17 05:50 BP 114/75 06/29/17 05:50 Pulse Ox 100 06/28/17 07:17 - Medical History PMH: Anxiety, Bipolar Disorder, Depression, Hypercholesterolemia, Post Traumatic Stress Disorder, Schizophrenia - [facility] Procedures DETOXIFICATION SERVICES FOR SUBSTANCE ABUSE TREATMENT (12/22/16) GROUP PSYCHOTHERAPY (07/18/16) INDIV PSYCHOTHERAPY FOR SUBSTANCE ABUSE TREATMENT, SUPPORT (12/22/16) INDIV PSYCHOTHERAPY FOR SUBSTANCE ABUSE, COGNITIV BEHAVIORAL (12/22/16) INDIV PSYCHOTHERAPY FOR SUBSTANCE ABUSE, PSYCHOEDUCATION (12/22/16) INDIVID PSYCHOTHERAP NEC (10/12/14) INDIVIDUAL PSYCHOTHERAPY, SUPPORTIVE (07/18/16) OTHER GROUP THERAPY (10/12/14) Family History: States: No Known Family Hx - Social History Hx Alcohol Use: Yes Hx Substance Use: Yes (marijuana use one week ago) - Immunization History Hx Tetanus Toxoid Vaccination: No Hx Influenza Vaccination: Yes Hx Pneumococcal Vaccination: No Review Of Systems Except As Marked, All Systems Reviewed And Found Negative. Neurological: Negative for: Weakness, Numbness Psych: Positive for: Suicidal ideation Physical Exam - Physical Exam Appears: Non-toxic, No Acute Distress Skin: Warm, Dry Head: Atraumatic, Normacephalic Oral Mucosa: Moist Throat: Normal Chest: Symmetrical Cardiovascular: Rhythm Regular Respiratory: Normal Breath Sounds, No Rales, No Rhonchi, No Stridor, No Wheezing Gastrointestinal/Abdominal: Normal Exam, Bowel Sounds Back: Normal Inspection Extremity: Normal ROM, No Swelling Neurological/Psych: Oriented x3, Normal Speech ED Course And Treatment - Laboratory Results Result Diagrams: 06/26/17 12:27 06/26/17 12:27 O2 Sat by Pulse Oximetry: 99 (RA) Pulse Ox Interpretation: Normal Medical Decision Making Medical Decision Making: IMPRESSION: Suicidal ideation/auditory hallucinations PLAN: * Alcohol Serum * Drug Screen * Labs * Urinalysis NOTE: * Patient is admitted for bipolar disorder to Dr. Vo. Disposition Discussed With : Miller Vo Doctor Will See Patient In The: Hospital Counseled Patient/Family Regarding: Studies Performed, Diagnosis - Disposition Disposition: HOSPITALIZED Disposition Time: 15:07 Condition: FAIR - Clinical Impression Clinical Impression: Drug abuse, Bipolar disease, manic - Scribe Statement The provider has reviewed the documentation as recorded by the Poppy Jackson Provider Attestation: All medical record entries made by the Poppy were at my direction and personally dictated by me. I have reviewed the chart and agree that the record accurately reflects my personal performance of the history, physical exam, medical decision making, and the department course for this patient. I have also personally directed, reviewed, and agree with the discharge instructions and disposition.
--- NOTE | 2017-06-26 18:54 | PCM.BM ---
<EnnoraQuique - Last Filed: 06/26/17 18:54> Treatment Plan Problems - Problems identified on initial assessmt Depression Date Initiated: 06/26/17 Time Initiated: 15:45 Assessment reference: NA Status: Active Suicidal Ideation Date Initiated: 06/26/17 Time Initiated: 15:45 Assessment reference: NA Status: Active Treatment assets and liabiliti Patient Assests: adapts well, cooperative, motivated, ADL independent, physically healthy, negotiates basic needs, good interpersonal skills Patient Liabilities: substance abuse (Cocaine, Marijuana), medical problems ( Hypertension) - Milieu Protocol Maintain good personal hygiene: daily Encourage regular showers, daily Remind patient to perform daily oral care, every shift Assist patient to perform ADL's Conduct patient checks and document Observation sheet: Q15 minutes Maintain personal safety: every shift Educate patient to report safety concerns to staff, every shift Monitor environment for contraband/sharps Medication safety: Monitor for expected outcome, potential side effects: every shift, Assess barriers to learning: every shift, Assess readiness for medication education: every shift <Tana Rivers - Last Filed: 06/29/17 11:51> Family Contact Family involvement: Famliy/SO not involved - Goals for Treatment Patient goals for treatment: "I don't know I have to work." Discharge/Continuing Care - Education Needs Education Needs: Patient Medication, Patient Coping Skills, Patient Placement options, Patient Community resources - Discharge Discharge Criteria: Tolerates medication w/o severe side effects, No longer exhibiting s/s of withdrawal, Reduction of target symptoms Discharge to:: Home - Treatment Team Participation Discussed with Family/SO: No Was Patient/Family/SO present at Treatment Team Meeting: Yes <Miller Vo - Last Filed: 06/29/17 13:16> - Diagnosis (1) Alcohol dependence Status: Acute Interventions: 06/29/17 13:16 * Assess 7x/week regarding severity of withdrawal * Educate regarding risks, benefits, side effects and alternatives of medications * Use Motivational Interviewing for abstinence * Use CBT for relapse prevention * Medication management for withdrawal symptoms * Encourage medication assisted treatment * (2) Depression Status: Acute Interventions: 06/29/17 13:16 * Assess/adjust medications daily and /or as needed * See patient on an individual basis 7x/week to assess symptoms of depression * Monitor for side effects & effectiveness of medications *
[2017-06-27] MEDS ORDERED: Magnesium Citrate Oral SOL (300 ml) PO ONE (19:00)
[2017-06-27] MEDS: Prazosin HCL 2 mg PO SCH (22:12)
[2017-06-28] MEDS: Prazosin HCL 2 mg PO SCH (22:49)
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
--- NOTE | 2017-06-29 03:50 | PCM.PYCHPN ---
Psychiatric Progress Note - Psychiatric Progress Note Patient seen today, length of contact: 15 MIN Patient Chief Complaint: I AM VERY DFEPRESSED Problems Identified/Issues Discussed: TIME FOR ANTIDEPRESANTS TO START HAVING AN EFFECT. 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 [employer] Medical Problems: NOTHING ACUTE Diagnostic Results: REVIEWED DSM 5 Symptoms Update: ANHEDONIA AVOLITION ANERGY Medication Change: No Medical Record Reviewed: Yes Mental Status Examination - Cognitive Function Orientation: Person, Place, Situation, Time Memory: Intact Attention: WNL Concentration: WNL Association: WNL Fund of Knowledge: WNL - Mood Mood: Depressed, Anxious - Affect Affect: Flat - Speech Speech: Loud - Formal Thought Process Formal Thought Process: Hallucinations, Paranoia - Suicidal Ideation Suicidal Ideation: No - Homicidal Ideation Homicidal Ideation: No Goal/Treatment Plan - Goal/Treatment Plan Need for Continued Stay: Discharge may exacerbated symptoms Progress Toward Problem(s) and Goals/Treatment Plan: BIPOLAR DISORDER MRE MIXED ZOLOFT ABILIFY REMERON SEROQUEL GROUP MILIEU AND RECREATIONAL THERAPY SUPPORTIVE PSYCHOTHERAPY PTSD MINIPRESS REMERON Estimated Date of D/C: 07/06/17 - Smoking Cessation Smoking Cessation Initiated: No
--- NOTE | 2017-06-29 13:09 | PCM.PYCHPN ---
Psychiatric Progress Note - Psychiatric Progress Note Patient seen today, length of contact: 17 min Patient Chief Complaint: "I need help" Problems Identified/Issues Discussed: The pt is seen, chart reviewed, case discussed with staff. The pt is compliant with medications and reports no side-effects. Symptoms are improving but needs more time to stabilize. After care discussed, support and psychoeducation given. He is somewhat entitled and demanding and unclear what he wants. When commercial insurance underwriter recommended IOP, he said "No, I work 14 hours a day!" but then again he was attending [facility] previously and he goes back and asks us about [facility], which is a rehab. He claims he didn't get there "because of" us as we allegedly didn't send his papers to them last time (?). [facility] is recommended and he will think about that. Medication Change: No Medical Record Reviewed: Yes Mental Status Examination - Cognitive Function Orientation: Person, Place, Situation, Time Memory: Intact Attention: WNL Concentration: WNL Association: WNL Fund of Knowledge: WNL - Mood Mood: Depressed, Anxious - Affect Affect: Flat - Speech Speech: Loud - Formal Thought Process Formal Thought Process: Hallucinations, Paranoia - Suicidal Ideation Suicidal Ideation: No - Homicidal Ideation Homicidal Ideation: No Goal/Treatment Plan - Goal/Treatment Plan Need for Continued Stay: Discharge may exacerbated symptoms, Severe functional impairment Progress Toward Problem(s) and Goals/Treatment Plan: Continue medications Support and psychoeducation daily Attend groups and activities daily After care planning by LETY Estimated Date of D/C: 07/06/17
[2017-06-29 13:10] VITALS: O2SAT 99
[2017-06-29] MEDS: Prazosin HCL 2 mg PO SCH (21:23)
--- NOTE | 2017-06-30 14:07 | PCM.PYCHPN ---
Psychiatric Progress Note - Psychiatric Progress Note Patient seen today, length of contact: 17 min Patient Chief Complaint: " I had a bad night" Problems Identified/Issues Discussed: The pt is seen, chart reviewed, case discussed with staff. The pt is compliant with medications and reports no side-effects. Symptoms are improving but needs more time to stabilize. After care discussed, support and psychoeducation given. Patient states he feels like he had a bad night because he had a headache and nightmares throughout the night. He feels like he has been having difficulty sleeping. Medication Change: No Medical Record Reviewed: Yes Mental Status Examination - Cognitive Function Orientation: Person, Place, Situation, Time Memory: Intact Attention: WNL Concentration: WNL Association: WN Fund of Knowledge: WN - Mood Mood: Depressed, Anxious - Affect Affect: Constricted - Speech Speech: Appropriate - Formal Thought Process Formal Thought Process: Hallucinations, Paranoia - Suicidal Ideation Suicidal Ideation: No - Homicidal Ideation Homicidal Ideation: No Goal/Treatment Plan - Goal/Treatment Plan Need for Continued Stay: Discharge may exacerbated symptoms, Severe functional impairment Progress Toward Problem(s) and Goals/Treatment Plan: Continue medications Support and psychoeducation daily Attend groups and activities daily Discussed with patient for possible discharge to [facility] or [facility]. After care planning by LETY Estimated Date of D/C: 07/06/17
[2017-06-30] MEDS: Prazosin HCL 2 mg PO SCH (21:56)
--- NOTE | 2017-07-01 11:43 | PCM.PYCHPN ---
Psychiatric Progress Note - Psychiatric Progress Note Patient seen today, length of contact: 16 min Patient Chief Complaint: "I want rehab, I can't go outside" Problems Identified/Issues Discussed: The pt is seen, chart reviewed, case discussed with staff. Support given, CBT and IL used briefly No new symptoms reported, improving slowly and needs more time No SEs from medications, risks discussed. After care discussed - Applying for [facility] in Medication Change: No Medical Record Reviewed: Yes Mental Status Examination - Cognitive Function Orientation: Person, Place, Situation, Time Memory: Intact Attention: WNL Concentration: WNL Association: WNL Fund of Knowledge: WNL - Mood Mood: Depressed, Anxious - Affect Affect: Constricted - Speech Speech: Appropriate - Formal Thought Process Formal Thought Process: Hallucinations, Paranoia - Suicidal Ideation Suicidal Ideation: No - Homicidal Ideation Homicidal Ideation: No Goal/Treatment Plan - Goal/Treatment Plan Need for Continued Stay: Discharge may exacerbated symptoms, Severe functional impairment Progress Toward Problem(s) and Goals/Treatment Plan: Continue medications Support and psychoeducation daily Attend groups and activities daily After care planning by LETY Estimated Date of D/C: 07/06/17
[2017-07-01] MEDS: Tobramycin/Dexamethasone (Tobradex) Opth Sol (2.5 ml) OU SCH (17:02)
[2017-07-01] MEDS: Prazosin HCL 2 mg PO SCH (21:08)
[2017-07-02 06:22] VITALS: TEMP 98.1
[2017-07-02] MEDS: Tobramycin/Dexamethasone (Tobradex) Opth Sol (2.5 ml) OU SCH ×2 (09:41→17:48)
--- NOTE | 2017-07-02 14:03 | PCM.PYCHPN ---
Psychiatric Progress Note - Psychiatric Progress Note Patient seen today, length of contact: 16 min Patient Chief Complaint: " I am feeling well and I want to go to rehab" Problems Identified/Issues Discussed: The pt is seen, chart reviewed, case discussed with staff. The pt is compliant with medications and reports no side-effects. Symptoms are improving but needs more time to stabilize. After care discussed, support and psychoeducation given. Applying for [employer] in [place]. Medication Change: No Medical Record Reviewed: Yes Mental Status Examination - Cognitive Function Orientation: Person, Place, Situation, Time Memory: Intact Attention: WNL Concentration: WNL Association: WNL Fund of Knowledge: WNL - Mood Mood: Anxious - Speech Speech: Appropriate - Formal Thought Process Formal Thought Process: Hallucinations, Paranoia - Suicidal Ideation Suicidal Ideation: No - Homicidal Ideation Homicidal Ideation: No Goal/Treatment Plan - Goal/Treatment Plan Need for Continued Stay: Discharge may exacerbated symptoms, Severe functional impairment Progress Toward Problem(s) and Goals/Treatment Plan: Continue medications Support and psychoeducation daily Attend groups and activities daily After care planning by LETY Estimated Date of D/C: 07/06/17
[2017-07-02] MEDS: Prazosin HCL 2 mg PO SCH (21:18)
[2017-07-03 06:14] VITALS: BP 124/78; PULSE 85; RESP 20
[2017-07-03] MEDS: Tobramycin/Dexamethasone (Tobradex) Opth Sol (2.5 ml) OU SCH (09:02)
--- NOTE | 2017-07-03 12:22 | PCM.PYCHDC ---
Mental Status Examination - Mental Status Examination Orientation: Person, Place, Situation, Time Memory: Intact Mood: Anxious Affect: Constricted Speech: Appropriate Attention: WNL Concentration: WNL Association: WNL Fund of Knowledge: WNL Formal Thought Process: No Impairment Suicidal Ideation: No Current Homicidal Ideation?: No Discharge Summary - Discharge Note Reason for Hospitalization: Depression and alcohol. Consultations:: List each consultation separately and include: 1. Reason for request. 2. Findings. 3. Follow-up Summary of Hospital Course include:: 1. Description of specific treatment plan utilized for patients during their course of treatmen. 2. Summarize the time- course for resolution of acute symptoms and/or regressed behaviors. 3. Describe issues identified and worked on during hospitalization. 4. Describe medication utilized. 5. Describe medical problems identified and treated. 6. Reassessment of suicide risk Summary of Hospital Course: The pt was admitted and started on treatment with psychotherapy, support, psychoeducation and medications. MN and CBT used. The pt attended groups and activities, as well as milieu therapy. All the risks and benefits of medications are discussed and the patient understood and agreed. The pt improved with the treatments provided. He was irate and sarcastic initially but improved and he really insisted on going to a rehab, ie [facility]. After care discussed with the patient. He went to [facility] but he would drop his truck first and then go there. Risk of relapse discussed. - Diagnosis (1) Alcohol dependence Status: Acute (2) Depression Status: Acute - Final Diagnosis (DSM 5) Condition upon Discharge: IMPROVED Disposition: REHAB FACILITY/REHAB UNIT Follow-up Treatment Plan: Continue below medications after discharge. Follow after care plan as discussed. Use relapse prevention skills Return to ER or call 911 if suicidal, homicidal or symptoms relapse. Stay away from stress, alcohol and drugs. See primary doctor regularly and get labs. Prescriptions/Medication Reconciliation: amLODIPine [Norvasc] 5 mg PO DAILY #30 tab Mirtazapine [Remeron] 30 mg PO HS #30 tab Prazosin HCL [Minipress] 2 mg PO HS #30 cap QUEtiapine [SEROquel] 50 mg PO HS #30 tab Sertraline [Zoloft] 100 mg PO DAILY #30 tab
== END 2017-07-03 09:05 | DRG 430 ==
LOC: C.ER 11:29 → C.5E 15:06
PROVIDERS: ADMIT Psychiatry & Neurology Psychiatry; ATTEND Psychiatry & Neurology Psychiatry
PROC: GZ3ZZZZ Medication Management (ICD-10-PCS; principal; 2017-06-26)
PROC: GZHZZZZ Group Psychotherapy (ICD-10-PCS; 2017-06-26)
PROC: GZ56ZZZ Individual Psychotherapy, Supportive (ICD-10-PCS; 2017-06-26)
DX: F31.60 Bipolar disorder, current episode mixed, unspecified (principal); R45.851 Suicidal ideations; F20.9 Schizophrenia, unspecified; F43.10 Post-traumatic stress disorder, unspecified; I10 Essential (primary) hypertension; F12.90 Cannabis use, unspecified, uncomplicated; F10.20 Alcohol dependence, uncomplicated; E78.00 Pure hypercholesterolemia, unspecified

== ENCOUNTER 2017-07-18 00:38 | Inpatient (IN) | payer MEDICAID ==
[2017-07-18 00:38] VITALS: BMI 29.9
[2017-07-18 01:42] LABS: SQUAMOUS EPITHIAL < 1 /hpf (0-5); URINE BILIRUBIN NEGATIVE (NEGATIVE); URINE BLOOD NEGATIVE (NEGATIVE); URINE CLARITY Clear (Clear); URINE COLOR Yellow (YELLOW); URINE GLUCOSE (UA) NORMAL (Normal); URINE LEUKOCYTE ESTERASE NEG Leu/uL (Negative); URINE PROTEIN NEGATIVE (NEGATIVE); URINE UROBILINOGEN NORMAL mg/dL (0.2-1.0)
[2017-07-18 01:48] LABS: BASO # 0.1 K/uL (0.0-0.2); BASO % 0.7 % (0.0-2.0); EOS # 0.1 K/uL (0.0-0.7); EOS % 0.6 % (0.0-4.0); HEMOGLOBIN 13.2 g/dL (12.0-18.0); LYMPH % 21.5 % (20.0-40.0); MEAN CELL VOLUME 84.8 fL (80.0-94.0); MEAN CORPUSCULAR HGB CONC 34.2 g/dL (33.0-37.0); MEAN PLATELET VOLUME 7.9 fL (7.2-11.7); MONO # 0.5 K/uL (0.0-0.8); MONO % 5.2 % (0.0-10.0); NEUT # 6.8 K/uL (1.8-7.0); NRBC % 0.1 % (0.0-2.0); RBC 4.56 Mil/uL (4.40-5.90); WHITE BLOOD COUNT 9.5 K/uL (4.8-10.8)
[2017-07-18 02:00] LABS: BARBITURATES, UR NEGATIVE (NEGATIVE); BENZODIAZEPINES, UR NEGATIVE (NEGATIVE); OPIATES, UR NEGATIVE (NEGATIVE); PHENCYCLIDINE, UR NEGATIVE (NEGATIVE)
--- NOTE | 2017-07-18 02:16 | C.PDOC ---
History Of Present Illness 52 years old male presents to ED requesting detox from drugs and alcohol. Patient admits to alcohol daily and reports substance use and marijuana use. Patient denies tobacco use, medications, history of allergies, or any other physical complaints. Chief Complaint (Nursing): Substance Abuse History Per: Patient History/Exam Limitations: no limitations Onset/Duration Of Symptoms: Hrs Current Symptoms Are (Timing): Still Present Suicide/Self Injury Attempted (Context): None Modifying Factor(s): Alcohol, Marijuana Associated Symptoms: denies: Suicidal Thoughts Involuntary Hold By: None Recent travel outside of the [place]: No Additional History Per: Patient Past Medical History Reviewed: Historical Data, Nursing Documentation, Vital Signs Vital Signs: Last Vital Signs Temp 98.4 F 07/18/17 03:20 Pulse 90 07/18/17 03:20 Resp 18 07/18/17 04:22 BP 142/79 07/18/17 03:20 Pulse Ox 99 07/18/17 05:53 - Medical History PMH: Anxiety, Bipolar Disorder, Depression, HTN, Hypercholesterolemia, Post Traumatic Stress Disorder, Schizophrenia Surgical History: No Surg Hx - [facility] Procedures DETOXIFICATION SERVICES FOR SUBSTANCE ABUSE TREATMENT (12/22/16) GROUP PSYCHOTHERAPY (07/04/17) INDIV PSYCHOTHERAPY FOR SUBSTANCE ABUSE TREATMENT, SUPPORT (12/22/16) INDIV PSYCHOTHERAPY FOR SUBSTANCE ABUSE, COGNITIV BEHAVIORAL (12/22/16) INDIV PSYCHOTHERAPY FOR SUBSTANCE ABUSE, PSYCHOEDUCATION (12/22/16) INDIVID PSYCHOTHERAP NEC (10/12/14) INDIVIDUAL PSYCHOTHERAPY, COGNITIVE-BEHAVIORAL (07/04/17) INDIVIDUAL PSYCHOTHERAPY, SUPPORTIVE (06/26/17) MEDICATION MANAGEMENT (06/26/17) OTHER GROUP THERAPY (10/12/14) Family History: States: Unknown Family Hx - Social History Hx Alcohol Use: Yes Hx Substance Use: Yes - Immunization History Hx Tetanus Toxoid Vaccination: No Hx Influenza Vaccination: Yes Hx Pneumococcal Vaccination: No Review Of Systems Constitutional: Positive for: Other (requesting detox). Negative for: Fever, Chills, Weakness Eyes: Negative for: Pain, Vision Change ENT: Negative for: Ear Pain, Ear Discharge Cardiovascular: Negative for: Chest Pain, Palpitations Respiratory: Negative for: Shortness of Breath, SOB with Excertion, Pleuritic Pain Gastrointestinal: Negative for: Nausea, Vomiting, Abdominal Pain, Diarrhea Neurological: Negative for: Weakness, Numbness Psych: Positive for: Anxiety, Depression. Negative for: Suicidal ideation Physical Exam - Physical Exam Appears: Well, Non-toxic, No Acute Distress Skin: Normal Color, Warm, Dry Head: Atraumatic, Normacephalic Eye(s): bilateral: Normal Inspection, PERRL, EOMI Nose: Normal, No Discharge, No Epistaxis Oral Mucosa: Moist Throat: No Erythema, No Exudate, No Drooling Neck: Supple Chest: Symmetrical, No Tenderness Cardiovascular: Rhythm Regular Respiratory: Normal Breath Sounds, No Decreased Breath Sounds, No Rales, No Rhonchi, No Wheezing Gastrointestinal/Abdominal: Soft, No Tenderness, No Distention, No Guarding, No Rebound Extremity: Normal ROM, No Tenderness, No Pedal Edema Extremity: Bilateral: Normal Color And Temperature, Normal ROM Neurological/Psych: Oriented x3, Normal Speech, Normal Cognition, Normal Motor, Normal Sensation, Other (no focal deficits ) ED Course And Treatment - Laboratory Results Result Diagrams: 07/18/17 01:22 07/18/17 01:24 O2 Sat by Pulse Oximetry: 99 (RA) Pulse Ox Interpretation: Normal Medical Decision Making Medical Decision Making: Ordered blood work and urinalysis. Crisis Notified. Disposition Counseled Patient/Family Regarding: Diagnosis - Disposition Disposition: HOSPITALIZED Disposition Time: 05:53 Condition: GOOD - Clinical Impression Clinical Impression: Drug dependence, Drug abuse - Scribe Statement The provider has reviewed the documentation as recorded by the Tovaibharvinder Eckert All medical record entries made by the Tovaibharvinder were at my direction and personally dictated by me. I have reviewed the chart and agree that the record accurately reflects my personal performance of the history, physical exam, medical decision making, and the department course for this patient. I have also personally directed, reviewed, and agree with the discharge instructions and disposition.
[2017-07-18 02:18] LABS: ALB/GLOB RATIO 1.2 (1.0-2.1); ALT/SGPT 41 U/L (21-72); AST/SGOT 43 U/L (17-59); BLOOD UREA NITROGEN 18 mg/dL (9-20); CALCIUM 8.9 mg/dl (8.6-10.4); GFR AFRICAN-AMERICAN > 60; GFR NON-AFRICAN AMERICAN > 60
--- NOTE | 2017-07-18 06:33 | PCM.BM ---
<Quique Giron - Last Filed: 07/18/17 06:32> Treatment Plan Problems - Problems identified on initial assessmt ETOH Abuse Date Initiated: 07/18/17 Time Initiated: 03:45 Assessment reference: NA Status: Active Treatment assets and liabiliti Patient Assests: adapts well, cooperative, motivated, ADL independent, physically healthy, negotiates basic needs, good interpersonal skills Patient Liabilities: substance abuse (ETOH, COCAINE, THC, OPIATES) - Milieu Protocol Maintain good personal hygiene: daily Encourage regular showers, daily Remind patient to perform daily oral care, every shift Assist patient to perform ADL's Conduct patient checks and document Observation sheet: Q15 minutes Maintain personal safety: every shift Educate patient to report safety concerns to staff, every shift Monitor environment for contraband/sharps Medication safety: Monitor for expected outcome, potential side effects: every shift, Assess barriers to learning: every shift, Assess readiness for medication education: every shift <Kane Castellano - Last Filed: 07/20/17 01:30> - Diagnosis (1) Alcohol use disorder, severe, dependence Status: Acute Interventions: 07/20/17 01:29 * Assess 7x/week regarding severity of withdrawal * Educate regarding risks, benefits, side effects and alternatives of medications * Use Motivational Interviewing for abstinence * Use CBT for relapse prevention * Medication management for withdrawal symptoms * Encourage medication assisted treatment (2) Cocaine use disorder, severe, dependence Status: Acute Interventions: 07/20/17 01:29 * Assess 7x/week regarding severity of withdrawal * Educate regarding risks, benefits, side effects and alternatives of medications * Use Motivational Interviewing for abstinence * Use CBT for relapse prevention * Medication management for withdrawal symptoms * Encourage medication assisted treatment (3) Cannabis use disorder, severe, dependence Status: Acute Interventions: 07/20/17 01:30 * Assess 7x/week regarding severity of withdrawal * Educate regarding risks, benefits, side effects and alternatives of medications * Use Motivational Interviewing for abstinence * Use CBT for relapse prevention * Medication management for withdrawal symptoms * Encourage medication assisted treatment
--- NOTE | 2017-07-18 11:27 | PCM.PSYCH ---
Initial Psychiatric Evaluation - Initial Psychiatric Evaluation Type of Admission: Voluntary Legal Status: Capacity Chief Complaint (in patient's own words): Franco for the treatment of his substance use. History of Present Illness and Precipitating Events: Patient is a 52 years old, single, employed, -[place] male who was admitted due to withdrawing from alcohol. Patient denied any psychiatric illness but according to record patient has history of bipolar disorder depressed also. He was discharged from [facility] psych unit on 07/03/2017 and from [facility] on 07/06/2017. Patient was discharged from [facility] with Seroquel, sertraline and mirtazapine. Patient refuses to take medications. Also reported that after discharge from the hospital he didn't take medications as he didn't want to take him but continued using drugs including alcohol, cocaine and marijuana. Patient started drinking alcohol at 23 years of age, increased gradually. Currently he was drinking 1 pint of alcohol daily. His last drink was yesterday. History of one previous detox but no rehabilitation. Cocaine started at 42 years of age. Using 1 g of cocaine daily, smoking. His last drink was yesterday. Cannabis started at 22 years of age, one gram daily. Last used yesterday. Patient smokes 2 cigarettes daily and refused nicotine patch. Patient was born in [place], has one year of college. Working in [employer]. He is single and has 117 years old son who lives with his mother. Patient lives alone. His height is 6 feet and weight is 215 pounds. Current Medications: Active Medications Generic Name Dose Route Start Last Admin Trade Name Freq PRN Reason Stop Dose Admin Chlordiazepoxide 0 mg 07/18/17 12:00 Librium PO 07/22/17 11:59 Q6 JABIER Taper Chlordiazepoxide 25 mg 07/18/17 11:19 Librium PO Q4H PRN Alcohol Withdrawal Clonidine HCl 0.1 mg 07/18/17 04:13 07/18/17 11:21 Catapres PO 0.1 mg Q6H PRN Administration Withdrawal symptoms Folic Acid 1 mg 07/18/17 11:30 Folic Acid PO DAILY JABIER Gabapentin 400 mg 07/18/17 14:00 Neurontin PO TID JABIER Hydroxyzine HCl 25 mg 07/18/17 04:15 Atarax PO Q6H PRN Anxiety Ibuprofen 400 mg 07/18/17 11:22 Motrin Tab PO Q6 PRN Pain, moderate (4-7) Multivitamins 1 tab 07/18/17 11:30 Hexavitamin PO DAILY JABIER Thiamine HCl 100 mg 07/18/17 11:30 Vitamin B1 Tab PO DAILY JABIER Trazodone HCl 50 mg 07/18/17 11:19 Desyrel PO HS PRN Insomnia Past Psychiatric History - Past Psychiatric History Previous Treatment History: Inpatient At [facility] hospital: [facility] History of Abuse: None reported History of ETOH/Drug Use: See HPI History of Family Illness: None reported Pertinent Medical Hx (Current Medical&Sleep Prob, Allergies): Allergies Allergy/AdvReac Type Severity Reaction Status Date / Time shrimp Allergy Mild SWELLING Verified 06/26/17 11:57 Dexamethasone/Tobramycin [Tobradex Opht Susp] 0.05 ml OU BID bottle 07/02/17 Mirtazapine [Remeron] 30 mg PO HS #30 tab 07/02/17 Prazosin HCL [Minipress] 2 mg PO HS #30 cap 07/02/17 QUEtiapine [SEROquel] 50 mg PO HS #30 tab 07/02/17 Sertraline [Zoloft] 100 mg PO DAILY #30 tab 07/02/17 amLODIPine [Norvasc] 5 mg PO DAILY #30 tab 07/02/17 Mirtazapine [Remeron] 30 mg PO HS tab 07/06/17 Prazosin HCl [Minipress] 2 mg PO HS cap 07/06/17 Sertraline [Zoloft] 100 mg PO DAILY tab 07/06/17 Hypertension Review of Systems - Psychiatric Psychiatric: Anxiety, Irritability, Other Mental Status Examination - Personal Presentation Personal Presentation: Looks stated age - Affect Affect: Other (Appropriate) - Motor Activity Motor Activity: Calm - Reliability in Providing Information Reliability in Providing Information: Fair - Speech Speech: Relevant - Mood Mood: Anxious - Formal Thought Process Formal Thought Process: No Impairment - Hallucinations/Delusions Hallucinations: Other (None reported) Delusions: Other - Obsessions/Compulsions Obsessions: None Compulsions: None - Cognitive Functions Orientation: Person, Place, Situation, Time Sensorium: Alert Attention/Concentration: Attentive Abstract Thinking: Stuart Estimate of Intelligence: Average Judgement: Intact, as evidence by: Insight regarding need for hospitalization Memory: Recent intact, as evidence by: Ability to recall events of the day, Remote intact, as evidenced by: Ability to recall historical events - Risk Risk: Withdrawal, Diminished functioning - Strength & Assets Inventory Strength & Assets Inventory: Employment status, Cooperative - Limitations Limitations: Living alone DSM 5 DX - DSM 5 DSM 5 Diagnosis: Alcohol use disorder severe Cocaine use disorder severe Cannabis use disorder severe - Recommended/Plan of Treatment Treatment Recommendations and Plan of Treatment: Patient education Supportive therapy CBT for last prevention [facility] for abstinence We'll start Librium detox protocol for alcohol withdrawal symptoms Other when necessary medications Projected ELOS: 4-5 days - Smoking Cessation Smoking Cessation Initiated: No
[2017-07-18] MEDS: Multiple Vitamins Tab PO SCH (11:57)
--- NOTE | 2017-07-19 07:12 | PCM.PYCHPN ---
Psychiatric Progress Note - Psychiatric Progress Note Patient seen today, length of contact: 15 min Patient Chief Complaint: I am feeling little better. Problems Identified/Issues Discussed: Patient seen and evaluated, chart reviewed and discussed with the nurse. Patient still reports withdrawal symptoms including nausea, headaches, cramps and sweating. He reports irritable mood but denies any feelings of hopelessness and helplessness. He denies any SI/HI/AVH. Patient remained isolated, confined and withdrawn. He is taking medication and denies any side effects. He needs more time for stabilization. Supportive therapy and psychoeducation were given. Medication Change: Yes (librium taper) Medical Record Reviewed: Yes Mental Status Examination - Cognitive Function Orientation: Person, Place, Situation, Time Memory: Intact Attention: WNL Concentration: Poor Association: WNL Fund of Knowledge: Poor - Mood Mood: Anxious - Affect Affect: Constricted - Speech Speech: Soft - Formal Thought Process Formal Thought Process: No Impairment - Suicidal Ideation Suicidal Ideation: No - Homicidal Ideation Homicidal Ideation: No Goal/Treatment Plan - Goal/Treatment Plan Need for Continued Stay: Severe depression anxiety, Severe functional impairment Progress Toward Problem(s) and Goals/Treatment Plan: Alcohol use disorder severe Cocaine use disorder severe Cannabis use disorder severe Patient education Supportive therapy CBT for last prevention [place] for abstinence We'll start Librium detox protocol for alcohol withdrawal symptoms Other when necessary medications - Smoking Cessation Smoking Cessation Initiated: No
[2017-07-19] MEDS: Multiple Vitamins Tab PO SCH (09:53)
[2017-07-19] MEDS ORDERED: Magnesium Hydroxide Susp 30 ml UD PO ONE (11:15)
[2017-07-19] MEDS ORDERED: Magnesium Hydroxide Susp 30 ml UD PO PRN (12:15)
[2017-07-19] MEDS ORDERED: Magnesium Citrate Oral SOL (300 ml) PO ONE (16:05)
[2017-07-20 10:20] VITALS: BP 135/80; PULSE 99; RESP 20; TEMP 98.5; O2SAT 98
[2017-07-20] MEDS: Multiple Vitamins Tab PO SCH (10:37)
--- NOTE | 2017-07-20 13:21 | PCM.PYCHDC ---
Discharge Summary - Discharge Note Consultations:: List each consultation separately and include: 1. Reason for request. 2. Findings. 3. Follow-up Summary of Hospital Course include:: 1. Description of specific treatment plan utilized for patients during their course of treatmen. 2. Summarize the time- course for resolution of acute symptoms and/or regressed behaviors. 3. Describe issues identified and worked on during hospitalization. 4. Describe medication utilized. 5. Describe medical problems identified and treated. 6. Reassessment of suicide risk Summary of Hospital Course: He called our weekend counselor Ketty munguia, rewriter Avelino and Jordan wiseman, our other counselor Roge was also verbally threatened by this patient. He left AMA with security support analyst, as before. - Final Diagnosis (DSM 5) Condition upon Discharge: GOOD DSM 5: Alcohol use d/o severe, with withdrawal Antisocial personality disorder Disposition: AGAINST MEDICAL ADVICE
== END 2017-07-20 09:30 | disposition left against medical advice (07) | DRG 749 ==
LOC: SUPCPDRO 00:38 → C.ER 00:38 → C.7D 03:06
PROC: HZ2ZZZZ Detoxification Services for Substance Abuse Treatment (ICD-10-PCS; principal; 2017-07-18)
PROC: HZ56ZZZ Individual Psychotherapy for Substance Abuse Treatment, Psychoeducation (ICD-10-PCS; 2017-07-18)
PROC: GZ3ZZZZ Medication Management (ICD-10-PCS; 2017-07-18)
PROC: HZ89ZZZ Medication Management for Substance Abuse Treatment, Other Replacement Medication (ICD-10-PCS; 2017-07-18)
DX: F10.230 Alcohol dependence with withdrawal, uncomplicated (principal); F14.20 Cocaine dependence, uncomplicated; F12.20 Cannabis dependence, uncomplicated; F31.9 Bipolar disorder, unspecified; F60.2 Antisocial personality disorder; F17.210 Nicotine dependence, cigarettes, uncomplicated; I10 Essential (primary) hypertension; E78.00 Pure hypercholesterolemia, unspecified

== ENCOUNTER 2017-09-01 22:01 | Emergency (ER) | payer MEDICAID ==
[2017-09-01 22:01] VITALS: BMI 29.8
[2017-09-01 23:12] LABS: BASO # 0.1 K/uL (0.0-0.2); BASO % 0.8 % (0.0-2.0); EOS % 0.6 % (0.0-4.0); HEMOGLOBIN 13.2 g/dL (12.0-18.0); LYMPH # 0.9 K/uL (1.0-4.3); LYMPH % 12.3 % (20.0-40.0); MEAN CORPUSCULAR HEMOGLOBIN 29.6 pg (27.0-31.0); MEAN CORPUSCULAR HGB CONC 34.4 g/dL (33.0-37.0); MEAN PLATELET VOLUME 7.9 fL (7.2-11.7); MONO # 0.4 K/uL (0.0-0.8); MONO % 5.5 % (0.0-10.0); NEUT % 80.8 % (50.0-75.0); RBC 4.46 Mil/uL (4.40-5.90); RED CELL DISTRIBUTION WIDTH 16.1 % (11.5-14.5); WHITE BLOOD COUNT 7.4 K/uL (4.8-10.8)
--- NOTE | 2017-09-01 23:16 | C.PDOC ---
History Of Present Illness <Stevan Velasquez - Last Filed: 09/02/17 00:37> <Abhijit Olvera R - Last Filed: 09/02/17 02:59> <Prerna De A - Last Filed: 09/02/17 10:29> 52 year old male presents to the ED c/o suicidal thoughts. Patient reports he has been thinking about hurting himself. Patient denies HI, hallucinations, CP, SOB, fever, chill. (Stevan Velasquez) History Per: Patient History/Exam Limitations: no limitations Onset/Duration Of Symptoms: Days Current Symptoms Are (Timing): Still Present Suicide/Self Injury Attempted (Context): Other Associated Symptoms: Depression, Suicidal Thoughts Recent travel outside of the [place]: No Additional History Per: Patient <Stevan Velasquez - Last Filed: 09/02/17 00:37> <Abhijit Olvera R - Last Filed: 09/02/17 02:59> <Prerna De A - Last Filed: 09/02/17 10:29> Time Seen by Provider: 09/01/17 22:32 Chief Complaint (Nursing): Psychiatric Evaluation Past Medical History Reviewed: Historical Data, Nursing Documentation, Vital Signs - Medical History PMH: Anxiety, Bipolar Disorder, COPD, Depression, HTN, Hypercholesterolemia, Post Traumatic Stress Disorder, Schizophrenia Denies: Diabetes, Hepatitis, HIV, Chronic Kidney Disease, Seizures, Sexually Transmitted Disease Surgical History: No Surg Hx Family History: States: Unknown Family Hx - Social History Hx Tobacco Use: Yes (2 cigarettes/day) Hx Alcohol Use: Yes (2 pints arielle las night 9pm) Hx Substance Use: Yes (MJ and cocaine daily) - Immunization History Hx Tetanus Toxoid Vaccination: No Hx Influenza Vaccination: Yes Hx Pneumococcal Vaccination: No <Stevan Velasquez - Last Filed: 09/02/17 00:37> Vital Signs: Last Vital Signs Temp 97.9 F 09/02/17 09:29 Pulse 62 09/02/17 09:29 Resp 16 09/02/17 09:29 BP 126/80 09/02/17 09:29 Pulse Ox 100 09/02/17 09:29 - [facility] Procedures DETOXIFICATION SERVICES FOR SUBSTANCE ABUSE TREATMENT (07/18/17) GROUP PSYCHOTHERAPY (08/26/17) INDIV PSYCHOTHERAPY FOR SUBSTANCE ABUSE TREATMENT, SUPPORT (07/30/17) INDIV PSYCHOTHERAPY FOR SUBSTANCE ABUSE, COGNITIV BEHAVIORAL (08/26/17) INDIV PSYCHOTHERAPY FOR SUBSTANCE ABUSE, MOTIVATION ENHANCE (07/30/17) INDIV PSYCHOTHERAPY FOR SUBSTANCE ABUSE, PSYCHOEDUCATION (07/18/17) INDIVID PSYCHOTHERAP NEC (10/12/14) INDIVIDUAL PSYCHOTHERAPY, COGNITIVE-BEHAVIORAL (08/26/17) INDIVIDUAL PSYCHOTHERAPY, SUPPORTIVE (06/26/17) MEDICATION MANAGEMENT (07/18/17) MEDS MGMT FOR SUBSTANCE ABUSE TREATMENT, OTH REPL MED (07/18/17) OTHER GROUP THERAPY (10/12/14) Review Of Systems Except As Marked, All Systems Reviewed And Found Negative. Psych: Positive for: Depression, Suicidal ideation <Stevan Velasquez - Last Filed: 09/02/17 00:37> Physical Exam - Physical Exam Appears: Non-toxic, No Acute Distress Skin: Normal Color, Warm, Dry Head: Atraumatic, Normacephalic Eye(s): bilateral: Normal Inspection Nose: No Discharge Oral Mucosa: Moist Neck: Normal ROM, Supple Chest: Symmetrical Cardiovascular: Rhythm Regular, No Murmur Respiratory: Normal Breath Sounds, No Rales, No Rhonchi, No Wheezing Gastrointestinal/Abdominal: Soft, No Tenderness, No Guarding, No Rebound Extremity: Normal ROM, No Tenderness, No Swelling Neurological/Psych: Oriented x3, Normal Speech Gait: Steady <Stevan Velasquez - Last Filed: 09/02/17 00:37> ED Course And Treatment - Laboratory Results Result Diagrams: 09/01/17 23:09 09/01/17 23:09 O2 Sat by Pulse Oximetry: 99 (ON RA) Pulse Ox Interpretation: Normal <Stevan Velasquez - Last Filed: 09/02/17 00:37> - Laboratory Results Result Diagrams: 09/01/17 23:09 09/01/17 23:09 ECG: Interpreted By Me, Viewed By Me ECG Rhythm: Sinus Rhythm, ST/T Changes Pulse Ox Interpretation: Normal - Radiology CXR: Interpreted by Me CXR Interpretation: Yes: No Acute Disease, Other (normal chest film). No: Infiltrates <Olvera,Abhijit R - Last Filed: 09/02/17 02:59> - Laboratory Results Result Diagrams: 09/01/17 23:09 09/01/17 23:09 <SantinoPrerna A - Last Filed: 09/02/17 10:29> Medical Decision Making <Stevan Velasquez - Last Filed: 09/02/17 00:37> <Abhijit Olvera R - Last Filed: 09/02/17 02:59> <SantinoPrerna A - Last Filed: 09/02/17 10:29> Medical Decision Making: Plan: * Labs * 1:1 OBS * UA 00:30 - patient is medically cleared 1237: case endorsed to [facility] pending crisis eval. (Stevan Velasquez) Disposition <Stevan Velasquez - Last Filed: 09/02/17 00:37> <Abhijit Olvera R - Last Filed: 09/02/17 02:59> Counseled Patient/Family Regarding: Studies Performed, Diagnosis, Need For Followup - Disposition Disposition Time: 10:30 <Wade Deia A - Last Filed: 09/02/17 10:29> - Disposition Referrals: [facility] at [facility] [Outside] Disposition: HOME/ ROUTINE Condition: STABLE Forms: [facility] (Slovak), General Discharge Instructions Print Language: BELARUSIAN - Clinical Impression Clinical Impression: Depression - Scribe Statement The provider has reviewed the documentation as recorded by the Scribe <Stevan Velasquez - Last Filed: 09/02/17 00:37> <Abhijit Olvera R - Last Filed: 09/02/17 02:59> <SantinoPrerna A - Last Filed: 09/02/17 10:29> - Scribe Statement Tom Crowe All medical record entries made by the Scribe were at my direction and personally dictated by me. I have reviewed the chart and agree that the record accurately reflects my personal performance of the history, physical exam, medical decision making, and the department course for this patient. I have also personally directed, reviewed, and agree with the discharge instructions and disposition. (Stevan Velasquez) Addendum <Stevan Velasquez - Last Filed: 09/02/17 00:37> <Abhijit Olvera R - Last Filed: 09/02/17 02:59> <SantinoPrerna A - Last Filed: 09/02/17 10:29> Addendum: 09/02/17 08:28 Patient accepted for transfer to [facility] psychiatric floor. 09/02/17 10:20 Patient has refused transfer to [facility] for psychiatric admission. He has been cleared for discharged from psychiatric standpoint by Dr. Vo. Patient instructed to follow up with PMD/clinic in 1-2 days. He understands he should return to ED if he has any concerning symptoms. (Prerna De)
[2017-09-01 23:30] LABS: ACETAMINOPHEN < 10.0 ug/mL (10.0-30.0); SALICYLATE < 1.0 mg/dL 1
[2017-09-01 23:34] LABS: ALB/GLOB RATIO 1.2 (1.0-2.1); ALT/SGPT 32 U/L (21-72); AST/SGOT 30 U/L (17-59); BLOOD UREA NITROGEN 15 mg/dL (9-20); CALCIUM 9.3 mg/dl (8.6-10.4); GFR AFRICAN-AMERICAN > 60; GFR NON-AFRICAN AMERICAN > 60
[2017-09-02 00:21] LABS: SQUAMOUS EPITHIAL < 1 /hpf (0-5); URINE BILIRUBIN NEGATIVE (NEGATIVE); URINE BLOOD NEGATIVE (NEGATIVE); URINE CLARITY Clear (Clear); URINE COLOR Yellow (YELLOW); URINE GLUCOSE (UA) NORMAL (Normal); URINE LEUKOCYTE ESTERASE NEG Leu/uL (Negative); URINE PROTEIN NEGATIVE (NEGATIVE); URINE UROBILINOGEN NORMAL mg/dL (0.2-1.0)
[2017-09-02 00:35] LABS: BARBITURATES, UR NEGATIVE (NEGATIVE); BENZODIAZEPINES, UR NEGATIVE (NEGATIVE); OPIATES, UR NEGATIVE (NEGATIVE); PHENCYCLIDINE, UR NEGATIVE (NEGATIVE)
--- NOTE | 2017-09-02 08:51 | RAD ---
HISTORY: for transfer COMPARISON: Chest radiograph dated 08/30/2017 TECHNIQUE: Chest PA and lateral FINDINGS: LUNGS: Nonspecific prominence of the right peritracheal stripe No active pulmonary disease. PLEURA: No significant pleural effusion identified. No pneumothorax apparent. CARDIOVASCULAR: Normal. OSSEOUS STRUCTURES: Unchanged. VISUALIZED UPPER ABDOMEN: Normal. OTHER FINDINGS: None. IMPRESSION: No active disease. Nonspecific prominence of the right paratracheal stripe for which CT scan can be obtained for further evaluation as clinically warranted.
[2017-09-02 09:29] VITALS: BP 126/80; PULSE 62; RESP 16; TEMP 97.9; O2SAT 100
--- NOTE | 2017-09-04 13:33 | CARD ---
APPROVED REPORT EKG Measurement Heart [id number] PA [id number] <Conclusion> Normal sinus rhythm LVH with repolarization abnormality Abnormal ECG
== END 2017-09-02 10:30 | disposition home or self-care (01) ==
LOC: C.ER 22:01
DX: F32.9 Major depressive disorder, single episode, unspecified (principal)

== ENCOUNTER 2018-04-20 17:14 | Emergency (ER) | payer MEDICAID ==
[2018-04-20 17:23] VITALS: BMI 32.5
--- NOTE | 2018-04-20 18:07 | C.PDOC ---
History Of Present Illness 53 y/o male presents to the ER complaining of right sided groin pain which began in the morning today. Patient states that the pain began after he he lifted heavy objects at work. Patient reports that he had angiogram 2 days ago. He notes that he was told to refrain from lifting heavy objects, however he did not comply. Denies having fever,chills, abdominal pain, dysuria, and hematuria. Time Seen by Provider: 04/20/18 17:32 Chief Complaint (Nursing): Groin Pain History Per: Patient History/Exam Limitations: no limitations Onset/Duration Of Symptoms: Hrs Current Symptoms Are (Timing): Still Present Severity: Moderate Past Medical History Reviewed: Historical Data, Nursing Documentation, Vital Signs Vital Signs: Last Vital Signs Temp 98.5 F 04/20/18 17:23 Pulse 101 H 04/20/18 17:23 Resp 20 04/20/18 17:23 BP 112/75 04/20/18 17:23 Pulse Ox 98 04/20/18 17:23 - Medical History PMH: Anxiety, Bipolar Disorder, COPD, Depression, HTN, Hypercholesterolemia, Post Traumatic Stress Disorder, Schizophrenia Denies: Diabetes, Hepatitis, HIV, Chronic Kidney Disease, Seizures, Sexually Transmitted Disease Surgical History: No Surg Hx - [facility] Procedures DETOXIFICATION SERVICES FOR SUBSTANCE ABUSE TREATMENT (07/18/17) GROUP PSYCHOTHERAPY (09/16/17) INDIV TACK PULLER MACHINE FOR SUBSTANCE ABUSE, COGNITIVE BEHAVIORAL (12/18/17) INDIV PSYCHOTHERAPY FOR SUBSTANCE ABUSE TREATMENT, SUPPORT (09/16/17) INDIV PSYCHOTHERAPY FOR SUBSTANCE ABUSE, COGNITIV BEHAVIORAL (12/18/17) INDIV PSYCHOTHERAPY FOR SUBSTANCE ABUSE, MOTIVATION ENHANCE (09/16/17) INDIV PSYCHOTHERAPY FOR SUBSTANCE ABUSE, PSYCHOEDUCATION (07/18/17) INDIVID PSYCHOTHERAP NEC (10/12/14) INDIVIDUAL PSYCHOTHERAPY, COGNITIVE-BEHAVIORAL (08/26/17) INDIVIDUAL PSYCHOTHERAPY, SUPPORTIVE (06/26/17) MEDICATION MANAGEMENT (07/18/17) MEDS MGMT FOR SUBSTANCE ABUSE TREATMENT, OTH REPL MED (07/18/17) OTHER GROUP THERAPY (10/12/14) PHARMACOTHERAPY FOR SUBSTANCE ABUSE, OTH REPLACE MED (12/18/17) Family History: States: No Known Family Hx - Social History Hx Tobacco Use: Yes (2 cigarettes/day) Hx Alcohol Use: Yes (social) Hx Substance Use: No - Immunization History Hx Tetanus Toxoid Vaccination: No Hx Influenza Vaccination: Yes Hx Pneumococcal Vaccination: No Review Of Systems Except As Marked, All Systems Reviewed And Found Negative. Constitutional: Negative for: Fever, Chills Gastrointestinal: Negative for: Abdominal Pain Genitourinary: Positive for: Other (groin pain). Negative for: Dysuria, Hematuria Physical Exam - Physical Exam Additional Physical Exam Comments: Constitutional: No acute distress. Head: Normocephalic. Atraumatic. Eyes: PERRL. ENT: Moist mucous membranes. Neck: Supple. Cardiovascular: Regular rate. Radial pulse 2+ bilaterally. Chest: No tenderness. Respiratory: Clear to auscultation bilaterally. GI: Soft. Nontender. Nondistended.No Hernia. Back: No CVA tenderness. Musculoskeletal: No tenderness or swelling of extremities. Skin: No rash. No active bleeding, no discharge, and no ecchymosis to right groin. Neurologic: Alert, no focal deficit. ED Course And Treatment - Laboratory Results Result Diagrams: 04/20/18 18:25 04/20/18 18:25 O2 Sat by Pulse Oximetry: 98 Medical Decision Making Medical Decision Making: Plan: --Labs --US-Abd US IMPRESSION: 1. There is no evidence of fluid collection. 2. There is no evidence of pseudoaneurysm. Disposition - Disposition Disposition: HOME/ ROUTINE Disposition Time: 21:19 Condition: STABLE Instructions: Cardiac Catheterization Forms: [facility] (Belarusian) - Clinical Impression Clinical Impression: Groin pain - Scribe Statement The provider has reviewed the documentation as recorded by the Poppy Del Valle Provider Attestation: All medical record entries made by the Poppy were at my direction and personally dictated by me. I have reviewed the chart and agree that the record accurately reflects my personal performance of the history, physical exam, medical decision making, and the department course for this patient. I have also personally directed, reviewed, and agree with the discharge instructions and disposition.
[2018-04-20 18:28] LABS: BASO # 0.1 K/uL (0.0-0.2); BASO % 0.7 % (0.0-2.0); EOS % 0.4 % (0.0-4.0); HEMOGLOBIN 13.8 g/dL (12.0-18.0); LYMPH # 2.3 K/uL (1.0-4.3); LYMPH % 19.4 % (20.0-40.0); MEAN CELL VOLUME 85.1 fL (80.0-94.0); MEAN CORPUSCULAR HEMOGLOBIN 28.4 pg (27.0-31.0); MEAN CORPUSCULAR HGB CONC 33.3 g/dL (33.0-37.0); MONO # 0.9 K/uL (0.0-0.8); MONO % 7.8 % (0.0-10.0); NEUT # 8.4 K/uL (1.8-7.0); NEUT % 71.7 % (50.0-75.0); NRBC % 0.1 % (0.0-2.0); RBC 4.88 Mil/uL (4.40-5.90); RED CELL DISTRIBUTION WIDTH 15.7 % (11.5-14.5)
[2018-04-20 18:35] LABS: WHITE BLOOD COUNT 11.7 K/uL (4.8-10.8)
[2018-04-20 18:42] LABS: INR 1.1; PROTHROMBIN TIME 11.8 SECONDS (9.7-12.2)
[2018-04-20 18:43] LABS: ALB/GLOB RATIO 1.6 (1.0-2.1); ALBUMIN 4.6 g/dL (3.5-5.0); ALT/SGPT 36 U/L (21-72); AST/SGOT 36 U/L (17-59); BLOOD UREA NITROGEN 28 mg/dL (9-20); CALCIUM 8.7 mg/dl (8.6-10.4); GFR NON-AFRICAN AMERICAN 58
[2018-04-21 04:52] VITALS: BP 132/86; PULSE 61; RESP 18; TEMP 97.8; O2SAT 96
--- NOTE | 2018-04-21 09:20 | US ---
Date of service: 04/20/2018 PROCEDURE: Ultrasound right inguinal, limited HISTORY: R groin pain, r/o pseudoaneurysm, angio 2 days ago COMPARISON: Not available TECHNIQUE: Targeted ultrasound examination was performed in the right inguinal region for evaluation of possible post arteriographic pseudoaneurysm. FINDINGS: There is no evidence of pseudoaneurysm. No evidence of hematoma. No solid mass or fluid collection. IMPRESSION: No evidence of pseudoaneurysm. Unremarkable examination. The preliminary findings for this examination were reported by [facility] Radiology at 04/20/2018 at 9:18 p.m.. There is concurrence of this report with the preliminary findings.
== END 2018-04-21 05:06 | disposition home or self-care (01) ==
LOC: C.ER 17:14
DX: R10.31 Right lower quadrant pain (principal); E78.00 Pure hypercholesterolemia, unspecified; J44.9 Chronic obstructive pulmonary disease, unspecified; I10 Essential (primary) hypertension; F17.210 Nicotine dependence, cigarettes, uncomplicated